=== PATIENT | male | born 1975 | race Two or more races ===

== ENCOUNTER 2020-12-20 16:41 | Inpatient (IN) | payer MEDICAID ==
[~2020-12-20] VITALS: Ht 167.6 cm; Wt 101.5 kg
[2020-12-20 18:50] LABS: Albumin 2.2 g/dL (3.4-5.0); Amylase 45 U/L (25-115); Anion Gap 8 (5-15); Basophils # (auto) 0 10 ^3/uL (0-0.2); Blood Urea Nitrogen 6 mg/dL (7-18); Calcium 7.7 mg/dL (8.5-10.1); Carbon Dioxide 27 mmol/L (21-32); Chloride 103 mmol/L (98-107); Eosinophils # (auto) 0.1 10 ^3/uL (0-0.8); Glucose 143 mg/dL (74-106); Lipase 173 U/L (73-393); Magnesium 1.9 mg/dL (1.6-2.6); Monocytes # (auto) 0.7 10 ^3/uL (0-1.3); Monocytes % (auto) 12.5 % (0.0-12.0); Potassium 3.7 mmol/L (3.5-5.1); Sodium 138 mmol/L (136-145)
[2020-12-20 18:52] LABS: Basophils % (auto) 0.5 % (0.0-2.0); Hemoglobin 11.1 g/dL (13.5-17.5); Lymphocytes # (auto) 1.5 10 ^3/uL (0.4-5.4); Lymphocytes % (auto) 26.7 % (10.0-50.0); Mean Corpuscular Hemoglobin 28.1 pg (28.0-32.0); Mean Corpuscular Hgb Conc. 32.8 g/dL (32.0-36.0); Mean Corpuscular Volume 85.7 fL (80.0-100.0); Neutrophils # (auto) 3.3 10 ^3/uL (1.6-8.6); Neutrophils % (auto) 59.3 % (37.0-80.0); Nucleated Red Blood Cells % 0.2 %; Platelet Count (auto) 43 10^3/uL (140-450); Red Blood Cells 3.96 10^6/uL (4.5-5.90); Red Cell Distribution Width 19.9 % (11.8-14.3); White Blood Cell 5.6 10^3/uL (4.4-10.8)
[2020-12-20 18:53] LABS: Lactic Acid w/Reflex 2.1 mmol/L (0.4-2.0)
[2020-12-20 18:58] LABS: Alanine Aminotransferase 43 U/L (16-61); Alkaline Phosphatase 214 U/L (45-117); Aspartate Aminotransferase 96 U/L (15-37); BUN/Creatinine Ratio 9.1; Bilirubin, Total 3.1 mg/dL (0.2-1.0); GFR African American 166 mL/min; GFR Non-African American 138 mL/min; Total Protein 7.8 g/dL (6.4-8.2)
[2020-12-20 19:26] LABS: INR 1.29 (0.9-1.15); Partial Thromboplastin Time 30.3 sec (23.0-31.2)
[2020-12-20] MEDS ORDERED: LACTULOSE 20Gm/30ML SOLN PO ONE (19:45)
[2020-12-20] MEDS ORDERED: ONDANSETRON HCL 4 MG/2 ML VIAL IV ONE (19:45)
[2020-12-20] MEDS ORDERED: LORazepam 2MG/ML-1ML VIAL IV ONE (19:45)
[2020-12-20] MEDS ORDERED: PIPERACILLIN-TAZOB 3.375GM 100 ML IV ONE (19:45)
[2020-12-21] VITALS (11 sets, daily range): BP systolic 117–153; BP diastolic 65–94
[2020-12-21] MEDS ORDERED: MORPHINE SULF INJ 2 MG/ML SYRINGE 1ML IV PRN (00:30)
[2020-12-21] MEDS ORDERED: NITROGLYCERIN 0.4 MG SL TAB SL PRN (00:30)
[2020-12-21] MEDS ORDERED: ALBUMIN 25% 50 ML IV ONE (00:30)
[2020-12-21] MEDS ORDERED: MORPHINE SULFATE 4 MG/ML SYR/VIAL IV PRN (00:30)
[2020-12-21] MEDS ORDERED: LORazepam 2MG/ML-1ML VIAL IV PRN (00:30)
[2020-12-21] MEDS ORDERED: ONDANSETRON HCL 4 MG/2 ML VIAL IV PRN (00:30)
[2020-12-21 04:50] LABS: Urine Bacteria NONE SEEN /hpf (None Seen); Urine Blood Negative /uL (Negative); Urine Specific Gravity 1.009 (1.001-1.035); Urine WBC 1 /hpf (0 - 3)
[2020-12-21] MEDS: SODIUM CHLOR 0.9% PF (SALINE LOCK) 10ML VIAL/SYR IV SCH ×3 (06:26→21:17)
[2020-12-21] MEDS: LACTULOSE 20Gm/30ML SOLN PO SCH ×4 (06:27→21:17)
[2020-12-21] MEDS: PIPERACILLIN-TAZOB 3.375GM 100 ML IV SCH ×3 (06:27→21:17)
[2020-12-21 06:45] LABS: Calcium 7.6 mg/dL (8.5-10.1); Potassium 3.5 mmol/L (3.5-5.1)
[2020-12-21 06:49] LABS: BUN/Creatinine Ratio 7.1; Bilirubin, Total 3.5 mg/dL (0.2-1.0)
[2020-12-21 07:00] LABS: Basophils # (auto) 0 10 ^3/uL (0-0.2); Basophils % (auto) 0.6 % (0.0-2.0); Eosinophils # (auto) 0 10 ^3/uL (0-0.8); Eosinophils % (auto) 0.8 % (0.0-7.0); Hematocrit 31.8 % (41.0-53.0); Hemoglobin 10.6 g/dL (13.5-17.5); Lymphocytes % (auto) 18.1 % (10.0-50.0); Mean Corpuscular Hemoglobin 28.7 pg (28.0-32.0); Mean Corpuscular Hgb Conc. 33.2 g/dL (32.0-36.0); Mean Corpuscular Volume 86.4 fL (80.0-100.0); Monocytes # (auto) 0.7 10 ^3/uL (0-1.3); Monocytes % (auto) 12.6 % (0.0-12.0); Neutrophils # (auto) 3.6 10 ^3/uL (1.6-8.6); Neutrophils % (auto) 67.9 % (37.0-80.0); Nucleated Red Blood Cells % 0.4 %; Platelet Count (auto) 55 10^3/uL (140-450); Red Blood Cells 3.68 10^6/uL (4.5-5.90); Red Cell Distribution Width 19.7 % (11.8-14.3); White Blood Cell 5.3 10^3/uL (4.4-10.8)
[2020-12-21 07:09] LABS: INR 1.31 (0.9-1.15)
[2020-12-21] MEDS ORDERED: ALBUMIN 25% 50 ML IV SCH (09:00)
[2020-12-21] MEDS: FAMOTIDINE 20 MG TAB PO SCH ×2 (09:42→21:17)
[2020-12-21] MEDS ORDERED: ZINC SULFATE 220mg CAP or TAB PO SCH (10:00)
[2020-12-21] MEDS ORDERED: INFLUENZA QUAD 2020-2021 0.5 ML SYRG IM ONE (10:00)
[2020-12-21] MEDS ORDERED: ASCORBIC ACID 500 MG TAB PO SCH (10:00)
[2020-12-21] MEDS ORDERED: MULTIPLE VITAMIN TAB PO SCH (10:00)
[2020-12-21] MEDS ORDERED: PNEUMOCOCCAL VACC POLYS 25 MCG/0.5 ML VIAL IM ONE (10:00)
[2020-12-21] MEDS: FOLIC ACID 1 MG, MULTIPLE VITAMIN 10 ML, MAGNESIUM SULF SDV 50% 8 MEQ, THIAMINE INJ 100... INJ SCH ×5 (13:00)
[2020-12-21] MEDS: FUROSEMIDE 40 MG TAB PO SCH (15:40)
[2020-12-21] MEDS: SPIRONOLACTONE 25 MG TAB PO SCH (15:41)
[2020-12-22 05:00] VITALS: BP 135/76
[2020-12-22] MEDS: LACTULOSE 20Gm/30ML SOLN PO SCH ×4 (05:29→22:53)
[2020-12-22] MEDS: PIPERACILLIN-TAZOB 3.375GM 100 ML IV SCH ×3 (05:29→21:31)
[2020-12-22] MEDS: SODIUM CHLOR 0.9% PF (SALINE LOCK) 10ML VIAL/SYR IV SCH ×3 (05:34→21:32)
[2020-12-22 05:55] LABS: Basophils # (auto) 0 10 ^3/uL (0-0.2); Eosinophils # (auto) 0.1 10 ^3/uL (0-0.8); Mean Corpuscular Hemoglobin 28.2 pg (28.0-32.0); Mean Corpuscular Hgb Conc. 32.8 g/dL (32.0-36.0); Mean Corpuscular Volume 85.9 fL (80.0-100.0); Monocytes # (auto) 0.9 10 ^3/uL (0-1.3)
[2020-12-22 06:00] LABS: Basophils % (auto) 0.5 % (0.0-2.0); Eosinophils % (auto) 1.2 % (0.0-7.0); Hematocrit 33.6 % (41.0-53.0); Lymphocytes # (auto) 1.2 10 ^3/uL (0.4-5.4); Lymphocytes % (auto) 22.8 % (10.0-50.0); Monocytes % (auto) 17.7 % (0.0-12.0); Neutrophils # (auto) 2.9 10 ^3/uL (1.6-8.6); Neutrophils % (auto) 57.8 % (37.0-80.0); Nucleated Red Blood Cells % 0.3 %; Platelet Count (auto) 51 10^3/uL (140-450); Red Blood Cells 3.91 10^6/uL (4.5-5.90); Red Cell Distribution Width 19.1 % (11.8-14.3); White Blood Cell 5.1 10^3/uL (4.4-10.8)
[2020-12-22 06:21] LABS: Potassium 3.3 mmol/L (3.5-5.1)
[2020-12-22 06:26] LABS: BUN/Creatinine Ratio 9.7; Bilirubin, Total 4.9 mg/dL (0.2-1.0); Calcium 8.1 mg/dL (8.5-10.1)
[2020-12-22 09:00] VITALS: BP 132/80
[2020-12-22] MEDS: FAMOTIDINE 20 MG TAB PO SCH ×2 (09:52→21:32)
[2020-12-22] MEDS: SPIRONOLACTONE 25 MG TAB PO SCH (09:52)
[2020-12-22] MEDS: FUROSEMIDE 40 MG TAB PO SCH (09:52)
[2020-12-22 13:00] VITALS: BP 127/70
[2020-12-22] MEDS: FOLIC ACID 1 MG, MULTIPLE VITAMIN 10 ML, MAGNESIUM SULF SDV 50% 8 MEQ, THIAMINE INJ 100... INJ SCH ×5 (13:13)
[2020-12-22 16:55] VITALS: BP 114/69
[2020-12-22 22:00] VITALS: BP 126/80
[2020-12-23] VITALS (11 sets, daily range): BP systolic 101–139; BP diastolic 62–86
[2020-12-23] MEDS: SODIUM CHLOR 0.9% PF (SALINE LOCK) 10ML VIAL/SYR IV SCH ×3 (04:44→20:53)
[2020-12-23] MEDS: PIPERACILLIN-TAZOB 3.375GM 100 ML IV SCH ×3 (04:44→20:53)
[2020-12-23] MEDS: LACTULOSE 20Gm/30ML SOLN PO SCH ×4 (04:45→23:26)
[2020-12-23 09:15] LABS: Basophils # (auto) 0 10 ^3/uL (0-0.2); Eosinophils # (auto) 0.1 10 ^3/uL (0-0.8); Lymphocytes # (auto) 1.1 10 ^3/uL (0.4-5.4); Monocytes # (auto) 0.5 10 ^3/uL (0-1.3); White Blood Cell 4.5 10^3/uL (4.4-10.8)
[2020-12-23 09:18] LABS: Basophils % (auto) 0.5 % (0.0-2.0); Eosinophils % (auto) 2.1 % (0.0-7.0); Hematocrit 35.2 % (41.0-53.0); Hemoglobin 11.8 g/dL (13.5-17.5); Lymphocytes % (auto) 24.3 % (10.0-50.0); Mean Corpuscular Hemoglobin 28.9 pg (28.0-32.0); Mean Corpuscular Hgb Conc. 33.4 g/dL (32.0-36.0); Mean Corpuscular Volume 86.5 fL (80.0-100.0); Neutrophils # (auto) 2.8 10 ^3/uL (1.6-8.6); Neutrophils % (auto) 61.1 % (37.0-80.0); Nucleated Red Blood Cells % 0.2 %; Platelet Count (auto) 48 10^3/uL (140-450); Red Blood Cells 4.07 10^6/uL (4.5-5.90); Red Cell Distribution Width 19.5 % (11.8-14.3)
[2020-12-23 10:53] LABS: INR 1.34 (0.9-1.15); Partial Thromboplastin Time 30.2 sec (23.0-31.2)
[2020-12-23] MEDS ORDERED: POTASSIUM CHL 20 Meq TABLET PO ONE (11:00)
[2020-12-23] MEDS: FUROSEMIDE 40 MG TAB PO SCH (15:12)
[2020-12-23] MEDS: FAMOTIDINE 20 MG TAB PO SCH ×2 (15:12→20:53)
[2020-12-23] MEDS: SPIRONOLACTONE 25 MG TAB PO SCH (15:12)
[2020-12-23] MEDS: FOLIC ACID 1 MG, MULTIPLE VITAMIN 10 ML, MAGNESIUM SULF SDV 50% 8 MEQ, THIAMINE INJ 100... INJ SCH ×5 (15:33)
[2020-12-23] MEDS ORDERED: ALBUMIN 25% 50 ML IV ONE (15:45)
[2020-12-23] MEDS ORDERED: ALBUMIN 25% 100 ML IV ONE (16:00)
[2020-12-24 05:00] VITALS: BP 131/77
[2020-12-24] MEDS: PIPERACILLIN-TAZOB 3.375GM 100 ML IV SCH (05:25)
[2020-12-24] MEDS: SODIUM CHLOR 0.9% PF (SALINE LOCK) 10ML VIAL/SYR IV SCH (05:25)
[2020-12-24] MEDS: LACTULOSE 20Gm/30ML SOLN PO SCH ×2 (05:25→12:00)
[2020-12-24 06:08] LABS: Basophils # (auto) 0 10 ^3/uL (0-0.2); Eosinophils # (auto) 0.1 10 ^3/uL (0-0.8); Eosinophils % (auto) 2.3 % (0.0-7.0); Hemoglobin 11.1 g/dL (13.5-17.5); Nucleated Red Blood Cells % 0.3 %
[2020-12-24 06:11] LABS: Basophils % (auto) 0.4 % (0.0-2.0); Hematocrit 34.1 % (41.0-53.0); Lymphocytes # (auto) 1.1 10 ^3/uL (0.4-5.4); Lymphocytes % (auto) 22.3 % (10.0-50.0); Mean Corpuscular Hemoglobin 28.3 pg (28.0-32.0); Mean Corpuscular Hgb Conc. 32.5 g/dL (32.0-36.0); Mean Corpuscular Volume 87.1 fL (80.0-100.0); Monocytes # (auto) 0.6 10 ^3/uL (0-1.3); Monocytes % (auto) 12.7 % (0.0-12.0); Neutrophils # (auto) 3.1 10 ^3/uL (1.6-8.6); Neutrophils % (auto) 62.3 % (37.0-80.0); Platelet Count (auto) 62 10^3/uL (140-450); Red Blood Cells 3.91 10^6/uL (4.5-5.90); Red Cell Distribution Width 18.7 % (11.8-14.3); White Blood Cell 4.9 10^3/uL (4.4-10.8)
[2020-12-24 09:00] VITALS: BP 120/74
[2020-12-24] MEDS: SPIRONOLACTONE 25 MG TAB PO SCH (09:14)
[2020-12-24] MEDS: FAMOTIDINE 20 MG TAB PO SCH (09:14)
[2020-12-24] MEDS: FUROSEMIDE 40 MG TAB PO SCH (09:14)
[2020-12-24] MEDS: FOLIC ACID 1 MG, MULTIPLE VITAMIN 10 ML, MAGNESIUM SULF SDV 50% 8 MEQ, THIAMINE INJ 100... INJ SCH ×5 (12:00)
[2020-12-24 12:31] VITALS: BP 120/74
[2020-12-24 13:00] VITALS: BP 123/73
== END 2020-12-24 13:30 | disposition home or self-care (01) | DRG 280 ==
LOC: ER 16:41 → TELE-WESTW 12-21 00:34
PROVIDERS: ADMIT Nurse Practitioner Family; ATTEND Family Medicine
PROC: 30233R1 Transfusion of Nonautologous Platelets into Peripheral Vein, Percutaneous Approach (ICD-10-PCS; 2020-12-21)
PROC: 0W9G3ZZ Drainage of Peritoneal Cavity, Percutaneous Approach (ICD-10-PCS; principal; 2020-12-23)
DX: K70.31 Alcoholic cirrhosis of liver with ascites (principal); J96.01 Acute respiratory failure with hypoxia; K72.90 Hepatic failure, unspecified without coma; F10.231 Alcohol dependence with withdrawal delirium; L03.115 Cellulitis of right lower limb; D69.6 Thrombocytopenia, unspecified; L03.116 Cellulitis of left lower limb; E44.1 Mild protein-calorie malnutrition; Z68.27 Body mass index [BMI] 27.0-27.9, adult; F41.9 Anxiety disorder, unspecified; F10.229 Alcohol dependence with intoxication, unspecified; F17.210 Nicotine dependence, cigarettes, uncomplicated; G40.909 Epilepsy, unspecified, not intractable, without status epilepticus; I10 Essential (primary) hypertension; J44.9 Chronic obstructive pulmonary disease, unspecified; Y90.8 Blood alcohol level of 240 mg/100 ml or more; Z91.14 Patient's other noncompliance with medication regimen; Z20.822 Contact with and (suspected) exposure to COVID-19; E11.9 Type 2 diabetes mellitus without complications
CPT/HCPCS: 10022; 36415; 70450; 71250; 74176; 76700; 76942; 80053; 80320; 81001; 82140; 82150; 82962; 83036; 83605; 83615; 83690; 83735; 83880; 83986; 84484; 85025; 85610; 85730; 86850; 86900; 86901; 87040; 87086; 87205; 87426; 89051; 93005; 96365; G0378; J2543

== ENCOUNTER 2021-08-31 13:04 | Emergency (ER) | payer MEDICAID ==
[~2021-08-31] VITALS: Ht 167.6 cm; Wt 86.2 kg
[2021-08-31 17:24] VITALS: BP 156/106
[2021-08-31] MEDS ORDERED: TETANUS-DIPTH-ACEL PERTUSSIS 0.5ML SYR Tdap IM ONE (18:00)
[2021-08-31] MEDS ORDERED: cefTRIAXone SOD 1,000 MG VL IM ONE (18:15)
== END 2021-08-31 18:50 | disposition home or self-care (01) ==
LOC: ER 13:04
DX: S81.031A Puncture wound without foreign body, right knee, initial encounter (principal); J44.9 Chronic obstructive pulmonary disease, unspecified; E11.9 Type 2 diabetes mellitus without complications; F17.210 Nicotine dependence, cigarettes, uncomplicated; W19.XXXA Unspecified fall, initial encounter; Y93.89 Activity, other specified; Y92.89 Other specified places as the place of occurrence of the external cause; Y99.8 Other external cause status
CPT/HCPCS: 73700; 90471; 90715; 96372; 99284; J0696

== ENCOUNTER 2022-05-25 08:30 | Emergency (ER) | payer MEDICAID ==
[~2022-05-25] VITALS: Ht 172.7 cm; Wt 74.6 kg
[~2022-05-25 08:30] MED LIST: FURO1TAB32 PO; SPIR100T4 PO
[2022-05-25] MEDS ORDERED: SODIUM CHLORIDE 0.9% 1,000 ML IV ONE (09:15)
[2022-05-25 09:33] LABS: Urine Bacteria NONE SEEN /hpf (None Seen); Urine Blood TRACE /uL (Negative); Urine Specific Gravity 1.013 (1.001-1.035); Urine WBC 2 /hpf (0 - 3)
[2022-05-25 09:33] LABS: Basophils # (auto) 0 10 ^3/uL (0-0.2); Basophils % (auto) 0.3 % (0.0-2.0); Eosinophils # (auto) 0 10 ^3/uL (0-0.8); Eosinophils % (auto) 0.6 % (0.0-7.0); Hematocrit 38.1 % (41.0-53.0); Lymphocytes # (auto) 0.5 10 ^3/uL (0.4-5.4); Monocytes # (auto) 0.6 10 ^3/uL (0-1.3); Red Cell Distribution Width 19.6 % (11.8-14.3); White Blood Cell 4.5 10^3/uL (4.4-10.8)
[2022-05-25 09:34] LABS: Hemoglobin 12.1 g/dL (13.5-17.5); Lymphocytes % (auto) 10.6 % (10.0-50.0); Mean Corpuscular Hemoglobin 27.6 pg (28.0-32.0); Mean Corpuscular Hgb Conc. 31.8 g/dL (32.0-36.0); Mean Corpuscular Volume 86.9 fL (80.0-100.0); Neutrophils # (auto) 3.4 10 ^3/uL (1.6-8.6); Neutrophils % (auto) 74.5 % (37.0-80.0); Nucleated Red Blood Cells % 0.1 %; Red Blood Cells 4.38 10^6/uL (4.5-5.90)
[2022-05-25 09:45] LABS: Alcohol, Urine < 3.0 mg/dL (0-10); Amphetamine Screen, Urine NEGATIVE (NEGATIVE); Barbiturate Scree,Urine NEGATIVE (NEGATIVE); Benzodiazephine Screen, Urine NEGATIVE (NEGATIVE); Cannabinoid Screen, Urine NEGATIVE (NEGATIVE); Cocaine Screen, Urine NEGATIVE (NEGATIVE); Opiate Scree,Urine NEGATIVE (NEGATIVE); Phencyclidine Screen, Urine NEGATIVE (NEGATIVE)
[2022-05-25 09:45] LABS: Calcium 8.7 mg/dL (8.5-10.1); Chloride 92 mmol/L (98-107); Potassium 3.4 mmol/L (3.5-5.1); Sodium 129 mmol/L (136-145)
[2022-05-25 09:52] LABS: Alanine Aminotransferase 49 U/L (16-61); Albumin 2.2 g/dL (3.4-5.0); Alkaline Phosphatase 149 U/L (45-117); Anion Gap 8 (5-15); Aspartate Aminotransferase 53 U/L (15-37); BUN/Creatinine Ratio 12.9; Bilirubin, Total 7.4 mg/dL (0.2-1.0); Blood Alcohol < 3.0 mg/dL (0-5); Blood Urea Nitrogen 13 mg/dL (7-18); Carbon Dioxide 29 mmol/L (21-32); GFR African American 101 mL/min; GFR Non-African American 83 mL/min; Glucose 325 mg/dL (74-106); Total Protein 8.3 g/dL (6.4-8.2)
[2022-05-25 12:00] VITALS: BP 105/59
[2022-05-25] MEDS ORDERED: POTASSIUM EFFERVESENT TAB 25 MEQ PO ONE (12:45)
== END 2022-05-25 12:50 | disposition home or self-care (01) ==
LOC: ER 08:30
DX: F10.10 Alcohol abuse, uncomplicated (principal); K70.30 Alcoholic cirrhosis of liver without ascites; E11.9 Type 2 diabetes mellitus without complications; J44.9 Chronic obstructive pulmonary disease, unspecified; F17.210 Nicotine dependence, cigarettes, uncomplicated; Z79.899 Other long term (current) drug therapy; Z20.822 Contact with and (suspected) exposure to COVID-19; Y90.0 Blood alcohol level of less than 20 mg/100 ml
CPT/HCPCS: 36415; 74176; 80053; 80307; 80320; 81001; 82140; 85025; 87426; 96360; 99284; J7030

== ENCOUNTER 2022-09-15 13:59 | Emergency (ER) | payer MEDICAID ==
[~2022-09-15] VITALS: Ht 172.7 cm; Wt 79.0 kg
[2022-09-15 15:03] LABS: Potassium 3.9 mmol/L (3.5-5.1)
[2022-09-15 15:09] LABS: Albumin 2.4 g/dL (3.4-5.0); Bilirubin, Total 2.1 mg/dL (0.2-1.0); Calcium 8.6 mg/dL (8.5-10.1); Total Protein 6.9 g/dL (6.4-8.2)
[2022-09-15 16:00] LABS: Basophils # (auto) 0 10 ^3/uL (0-0.2); Basophils % (auto) 0.3 % (0.0-2.0); Hematocrit 40.3 % (41.0-53.0); Monocytes # (auto) 0.5 10 ^3/uL (0-1.3); Neutrophils # (auto) 3.7 10 ^3/uL (1.6-8.6); Nucleated Red Blood Cells % 0.2 %; White Blood Cell 5.4 10^3/uL (4.4-10.8)
[2022-09-15 16:03] LABS: Eosinophils # (auto) 0.1 10 ^3/uL (0-0.8); Hemoglobin 12.8 g/dL (13.5-17.5); Lymphocytes % (auto) 18.8 % (10.0-50.0); Mean Corpuscular Hemoglobin 25.3 pg (28.0-32.0); Mean Corpuscular Hgb Conc. 31.7 g/dL (32.0-36.0); Mean Corpuscular Volume 79.7 fL (80.0-100.0); Monocytes % (auto) 10.1 % (0.0-12.0); Neutrophils % (auto) 69.8 % (37.0-80.0); Red Blood Cells 5.06 10^6/uL (4.5-5.90); Red Cell Distribution Width 17.6 % (11.8-14.3)
[2022-09-15 18:56] VITALS: BP 103/49
== END 2022-09-15 18:57 | disposition home or self-care (01) ==
LOC: ER 13:59
DX: K43.9 Ventral hernia without obstruction or gangrene (principal); K42.9 Umbilical hernia without obstruction or gangrene; E11.65 Type 2 diabetes mellitus with hyperglycemia; K70.30 Alcoholic cirrhosis of liver without ascites; F41.9 Anxiety disorder, unspecified; J44.9 Chronic obstructive pulmonary disease, unspecified; F17.210 Nicotine dependence, cigarettes, uncomplicated; R10.84 Generalized abdominal pain
CPT/HCPCS: 36415; 74176; 80053; 83690; 84484; 85025

== ENCOUNTER 2022-10-23 17:24 | Inpatient (IN) | payer MEDICAID ==
[~2022-10-23] VITALS: Ht 165.1 cm; Wt 92.7 kg
[2022-10-23] MEDS ORDERED: ONDANSETRON HCL 4 MG/2 ML VIAL IV ONE (17:45)
[2022-10-23] MEDS ORDERED: PANTOPRAZOLE 40 MG/10 ML VIAL INJ IV ONE (17:45)
[2022-10-23] MEDS ORDERED: MORPHINE SULFATE 4 MG/ML SYR/VIAL IV ONE (17:45)
[2022-10-23 18:40] LABS: Urine Bacteria NONE SEEN /hpf (None Seen); Urine Blood TRACE /uL (Negative); Urine Specific Gravity 1.023 (1.001-1.035); Urine WBC <1 /hpf (0 - 3)
[2022-10-23 18:44] LABS: Basophils # (auto) 0 10 ^3/uL (0-0.2); Basophils % (auto) 0.6 % (0.0-2.0); Eosinophils # (auto) 0 10 ^3/uL (0-0.8); Neutrophils # (auto) 2.2 10 ^3/uL (1.6-8.6); White Blood Cell 3.8 10^3/uL (4.4-10.8)
[2022-10-23 18:47] LABS: Eosinophils % (auto) 0.7 % (0.0-7.0); Hematocrit 37.2 % (41.0-53.0); Lymphocytes % (auto) 27.2 % (10.0-50.0); Mean Corpuscular Hemoglobin 26.4 pg (28.0-32.0); Mean Corpuscular Hgb Conc. 32.4 g/dL (32.0-36.0); Mean Corpuscular Volume 81.4 fL (80.0-100.0); Monocytes # (auto) 0.6 10 ^3/uL (0-1.3); Monocytes % (auto) 14.5 % (0.0-12.0); Nucleated Red Blood Cells % 0.3 %; Red Blood Cells 4.57 10^6/uL (4.5-5.90); Red Cell Distribution Width 20.5 % (11.8-14.3)
[2022-10-23 18:55] LABS: Albumin 2.6 g/dL (3.4-5.0); Calcium 8.4 mg/dL (8.5-10.1); Magnesium 1.9 mg/dL (1.6-2.6); Potassium 3.9 mmol/L (3.5-5.1)
[2022-10-23 19:00] LABS: BUN/Creatinine Ratio 8.9; Bilirubin, Total 2.8 mg/dL (0.2-1.0); Total Protein 7.6 g/dL (6.4-8.2)
[2022-10-23] MEDS ORDERED: ACETAMINOPHEN 325 MG TAB PO PRN (21:45)
[2022-10-23] MEDS ORDERED: SODIUM CHLORIDE 0.9% 1,000 ML IV SCH (21:45)
[2022-10-23] MEDS ORDERED: hydrALAZINE HCL 20 MG/ML VL IV PRN (21:45)
[2022-10-23] MEDS ORDERED: MORPHINE SULFATE INJ 2 MG/ml SYRG IV PRN ×2 (21:45→23:15)
[2022-10-23] MEDS ORDERED: cefTRIAXone 1GM/50ML D5W 50 ML IV ONE (21:45)
[2022-10-23] MEDS ORDERED: DOCUSATE SOD 100 MG CAP PO PRN (21:45)
[2022-10-23] MEDS ORDERED: HYDROcodone-ACET 5/325MG TAB PO PRN (21:45)
[2022-10-23] MEDS ORDERED: DEXTROSE (50%) 50ML SYRG IV PRN (21:45)
[2022-10-23] MEDS ORDERED: ONDANSETRON HCL 4 MG/2 ML VIAL IV PRN (21:45)
[2022-10-23] MEDS ORDERED: NITROGLYCERIN 0.4 MG SL TAB SL PRN (23:15)
[2022-10-23 23:23] LABS: Lactic Acid w/Reflex 2.5 mmol/L (0.4-2.0)
[2022-10-23] MEDS: FAMOTIDINE (10MG/ML) 2ML VL IV SCH (23:23)
[2022-10-24] MEDS: ACCU-CHEK COMFORT CURVE STRIP VI SCH ×5 (00:02→22:25)
[2022-10-24] MEDS: InsuLIN REG 1unit/0.01ml Soln (100units/ml) SC SCH ×5 (00:02→22:26)
[2022-10-24 07:03] LABS: Basophils # (auto) 0 10 ^3/uL (0-0.2); Eosinophils # (auto) 0 10 ^3/uL (0-0.8); Eosinophils % (auto) 1.1 % (0.0-7.0); Hemoglobin 11.6 g/dL (13.5-17.5); Lymphocytes # (auto) 0.8 10 ^3/uL (0.4-5.4); Monocytes # (auto) 0.5 10 ^3/uL (0-1.3); Neutrophils # (auto) 2.2 10 ^3/uL (1.6-8.6); White Blood Cell 3.5 10^3/uL (4.4-10.8)
[2022-10-24 07:05] LABS: Basophils % (auto) 0.4 % (0.0-2.0); Hematocrit 36.4 % (41.0-53.0); Lymphocytes % (auto) 22.8 % (10.0-50.0); Mean Corpuscular Hgb Conc. 31.8 g/dL (32.0-36.0); Mean Corpuscular Volume 81.9 fL (80.0-100.0); Monocytes % (auto) 13.4 % (0.0-12.0); Neutrophils % (auto) 62.3 % (37.0-80.0); Nucleated Red Blood Cells % 0.4 %; Red Blood Cells 4.45 10^6/uL (4.5-5.90)
[2022-10-24 07:07] LABS: Red Cell Distribution Width 20.5 % (11.8-14.3)
[2022-10-24 07:15] LABS: Potassium 3.7 mmol/L (3.5-5.1)
[2022-10-24 07:22] LABS: Albumin 2.3 g/dL (3.4-5.0); BUN/Creatinine Ratio 9.1; Bilirubin, Total 2.7 mg/dL (0.2-1.0); Calcium 8.2 mg/dL (8.5-10.1); Total Protein 6.8 g/dL (6.4-8.2)
[2022-10-24] MEDS ORDERED: FUROSEMIDE 40 MG/4 ML VIAL IV SCH (10:00)
[2022-10-24] MEDS: SPIRONOLACTONE 25 MG TAB PO SCH (10:00)
[2022-10-24] MEDS ORDERED: DEXTROSE (50%) 50ML SYRG IV PRN (11:00)
[2022-10-24] MEDS: FAMOTIDINE (10MG/ML) 2ML VL IV SCH ×2 (11:26→22:25)
[2022-10-24] MEDS: cefTRIAXone 1GM/50ML D5W 50 ML IV SCH (11:27)
[2022-10-24] MEDS: MULTIPLE VITAMIN TAB PO SCH (11:27)
[2022-10-24] MEDS: THIAMINE HCL 100 MG TAB PO SCH (11:27)
[2022-10-24] MEDS: FOLIC ACID 1 MG TAB PO SCH (11:28)
[2022-10-24 11:47] LABS: INR 1.13 (0.9-1.15); Partial Thromboplastin Time 25.4 sec (24.6-33.4)
[2022-10-24] MEDS: LACTULOSE 20Gm/30ML SOLN PO SCH ×2 (12:11→18:29)
[2022-10-24 13:24] VITALS: BP 134/86
[2022-10-24] MEDS ORDERED: ALBUMIN 25% 100 ML IV ONE (14:30)
[2022-10-24] MEDS ORDERED: FUROSEMIDE 20 MG/2 ML VIAL IV ONE (15:30)
[2022-10-24 17:20] VITALS: BP 146/81
[2022-10-24 22:00] VITALS: BP 129/63
[2022-10-24] MEDS: FUROSEMIDE 40 MG/4 ML VIAL IV SCH (22:25)
[2022-10-25 05:00] VITALS: BP 125/56
[2022-10-25 06:08] LABS: Basophils # (auto) 0 10 ^3/uL (0-0.2); Basophils % (auto) 0.4 % (0.0-2.0); Eosinophils # (auto) 0.1 10 ^3/uL (0-0.8); Eosinophils % (auto) 1.7 % (0.0-7.0); Monocytes # (auto) 0.6 10 ^3/uL (0-1.3)
[2022-10-25 06:11] LABS: Hematocrit 35.9 % (41.0-53.0); Hemoglobin 11.5 g/dL (13.5-17.5); Lymphocytes % (auto) 26.7 % (10.0-50.0); Mean Corpuscular Hemoglobin 26.2 pg (28.0-32.0); Neutrophils % (auto) 55.2 % (37.0-80.0); Nucleated Red Blood Cells % 0.4 %; Red Blood Cells 4.38 10^6/uL (4.5-5.90); White Blood Cell 3.7 10^3/uL (4.4-10.8)
[2022-10-25] MEDS: ACCU-CHEK COMFORT CURVE STRIP VI SCH ×4 (06:24→22:08)
[2022-10-25] MEDS: LACTULOSE 20Gm/30ML SOLN PO SCH ×4 (06:24→17:32)
[2022-10-25] MEDS: InsuLIN REG 1unit/0.01ml Soln (100units/ml) SC SCH ×4 (06:25→22:09)
[2022-10-25 06:49] LABS: Red Cell Distribution Width 20.4 % (11.8-14.3)
[2022-10-25 06:53] LABS: Potassium 3.3 mmol/L (3.5-5.1)
[2022-10-25 07:01] LABS: Albumin 2.3 g/dL (3.4-5.0); Bilirubin, Total 3.6 mg/dL (0.2-1.0); Calcium 8.4 mg/dL (8.5-10.1); Total Protein 6.4 g/dL (6.4-8.2)
[2022-10-25] MEDS ORDERED: POTASSIUM CHL 20 Meq TABLET PO ONE ×2 (07:45→16:00)
[2022-10-25 08:00] VITALS: BP 129/72
[2022-10-25 09:00] VITALS: BP 129/72
[2022-10-25] MEDS: FAMOTIDINE (10MG/ML) 2ML VL IV SCH ×2 (10:30→22:08)
[2022-10-25] MEDS: FUROSEMIDE 40 MG/4 ML VIAL IV SCH ×2 (10:30→22:08)
[2022-10-25] MEDS: FOLIC ACID 1 MG TAB PO SCH (10:30)
[2022-10-25] MEDS: cefTRIAXone 1GM/50ML D5W 50 ML IV SCH (10:30)
[2022-10-25] MEDS: THIAMINE HCL 100 MG TAB PO SCH (10:31)
[2022-10-25] MEDS: MULTIPLE VITAMIN TAB PO SCH (10:31)
[2022-10-25] MEDS: SPIRONOLACTONE 25 MG TAB PO SCH (10:31)
[2022-10-25 13:00] VITALS: BP 137/84
[2022-10-25] MEDS ORDERED: INSULIN LANTUS (GLARGINE) 1 /0.01ml (100units/ml) SC ONE (13:00)
[2022-10-25 17:00] VITALS: BP 120/77
[2022-10-25 22:00] VITALS: BP 135/85
[2022-10-26 05:00] VITALS: BP 125/76
[2022-10-26] MEDS: LACTULOSE 20Gm/30ML SOLN PO SCH ×4 (06:00→18:00)
[2022-10-26 06:15] LABS: Basophils # (auto) 0 10 ^3/uL (0-0.2); Eosinophils # (auto) 0.1 10 ^3/uL (0-0.8); Hemoglobin 12.5 g/dL (13.5-17.5); Monocytes # (auto) 0.5 10 ^3/uL (0-1.3); Red Blood Cells 4.78 10^6/uL (4.5-5.90); White Blood Cell 3.6 10^3/uL (4.4-10.8)
[2022-10-26 06:19] LABS: Basophils % (auto) 0.5 % (0.0-2.0); Eosinophils % (auto) 1.7 % (0.0-7.0); Hematocrit 39.8 % (41.0-53.0); Lymphocytes % (auto) 28.4 % (10.0-50.0); Mean Corpuscular Hemoglobin 26.1 pg (28.0-32.0); Mean Corpuscular Hgb Conc. 31.4 g/dL (32.0-36.0); Mean Corpuscular Volume 83.3 fL (80.0-100.0); Monocytes % (auto) 13.5 % (0.0-12.0); Neutrophils % (auto) 55.9 % (37.0-80.0); Nucleated Red Blood Cells % 0.7 %
[2022-10-26 06:20] LABS: Red Cell Distribution Width 20.5 % (11.8-14.3)
[2022-10-26] MEDS: ACCU-CHEK COMFORT CURVE STRIP VI SCH ×4 (06:24→21:57)
[2022-10-26] MEDS: INSULIN LANTUS (GLARGINE) 1 /0.01ml (100units/ml) SC SCH (06:24)
[2022-10-26] MEDS: InsuLIN REG 1unit/0.01ml Soln (100units/ml) SC SCH ×4 (06:25→21:49)
[2022-10-26 06:42] LABS: Albumin 2.2 g/dL (3.4-5.0); BUN/Creatinine Ratio 13.3; Calcium 8.5 mg/dL (8.5-10.1); Potassium 3.5 mmol/L (3.5-5.1)
[2022-10-26 06:50] LABS: Bilirubin, Total 3.3 mg/dL (0.2-1.0); Total Protein 6.9 g/dL (6.4-8.2)
[2022-10-26 08:00] VITALS: BP 125/76
[2022-10-26] MEDS: cefTRIAXone 1GM/50ML D5W 50 ML IV SCH (08:49)
[2022-10-26 09:00] VITALS: BP 126/86
[2022-10-26] MEDS ORDERED: LANC-347 XX (10:27)
[2022-10-26] MEDS ORDERED: POTA-180 PO (10:27)
[2022-10-26] MEDS ORDERED: FURO1TAB31 PO (10:27)
[2022-10-26] MEDS ORDERED: INSU1INJ27 SC (10:27)
[2022-10-26] MEDS ORDERED: BLOO1KIT60 XX (10:27)
[2022-10-26] MEDS ORDERED: LACT10PA2 PO (10:29)
[2022-10-26] MEDS ORDERED: POTASSIUM CHL 20 Meq TABLET PO ONE (10:30)
[2022-10-26] MEDS ORDERED: ALBUMIN 25% 100 ML IV ONE (10:30)
[2022-10-26] MEDS: FOLIC ACID 1 MG TAB PO SCH (11:46)
[2022-10-26] MEDS: MULTIPLE VITAMIN TAB PO SCH (11:47)
[2022-10-26] MEDS: SPIRONOLACTONE 25 MG TAB PO SCH (11:48)
[2022-10-26] MEDS: FAMOTIDINE (10MG/ML) 2ML VL IV SCH ×2 (11:49→21:54)
[2022-10-26] MEDS: FUROSEMIDE 40 MG/4 ML VIAL IV SCH ×2 (11:49→21:52)
[2022-10-26 11:51] LABS: Hepatitis B Surface Antibody Negative (Negative)
[2022-10-26] MEDS: THIAMINE HCL 100 MG TAB PO SCH (12:05)
[2022-10-26 12:18] LABS: Hepatitis A Total Antibody Positive (Negative)
[2022-10-26 13:00] VITALS: BP 121/76
[2022-10-26 14:55] LABS: Hepatitis A Ab IgM Negative; Hepatitis B Core IgM Negative; Hepatitis C Antibody Negative (Negative)
[2022-10-26] MEDS ORDERED: ALBUMIN 25% 50 ML IV ONE (15:30)
[2022-10-26 16:29] VITALS: BP 129/79
[2022-10-26 16:56] VITALS: BP 126/70
[2022-10-27] MEDS: LACTULOSE 20Gm/30ML SOLN PO SCH ×3 (00:25→12:00)
[2022-10-27 05:48] VITALS: BP 129/76
[2022-10-27] MEDS: ACCU-CHEK COMFORT CURVE STRIP VI SCH ×2 (06:45→11:30)
[2022-10-27] MEDS: INSULIN LANTUS (GLARGINE) 1 /0.01ml (100units/ml) SC SCH (06:48)
[2022-10-27] MEDS: InsuLIN REG 1unit/0.01ml Soln (100units/ml) SC SCH ×2 (06:49→11:30)
[2022-10-27 08:00] VITALS: BP 106/57
[2022-10-27 08:59] VITALS: BP 106/57
[2022-10-27] MEDS: cefTRIAXone 1GM/50ML D5W 50 ML IV SCH (09:00)
[2022-10-27] MEDS: FOLIC ACID 1 MG TAB PO SCH (10:00)
[2022-10-27] MEDS: FUROSEMIDE 40 MG/4 ML VIAL IV SCH (10:00)
[2022-10-27] MEDS: FAMOTIDINE (10MG/ML) 2ML VL IV SCH (10:00)
[2022-10-27] MEDS: MULTIPLE VITAMIN TAB PO SCH (10:00)
[2022-10-27] MEDS: THIAMINE HCL 100 MG TAB PO SCH (10:00)
[2022-10-27] MEDS: SPIRONOLACTONE 25 MG TAB PO SCH (10:00)
== END 2022-10-27 14:55 | disposition home or self-care (01) | DRG 280 ==
LOC: ER 17:27 → OVERFLOW 23:08 → EAST 10-24 12:58 → WEST WING 10-24 17:11
PROVIDERS: ADMIT Nurse Practitioner Family; ATTEND Internal Medicine
PROC: 0W9G30Z Drainage of Peritoneal Cavity with Drainage Device, Percutaneous Approach (ICD-10-PCS; principal; 2022-10-26)
DX: K70.31 Alcoholic cirrhosis of liver with ascites (principal); E43 Unspecified severe protein-calorie malnutrition; D69.6 Thrombocytopenia, unspecified; D64.9 Anemia, unspecified; K76.82 Hepatic encephalopathy; R16.2 Hepatomegaly with splenomegaly, not elsewhere classified; E11.65 Type 2 diabetes mellitus with hyperglycemia; E87.70 Fluid overload, unspecified; F10.120 Alcohol abuse with intoxication, uncomplicated; Z68.34 Body mass index [BMI] 34.0-34.9, adult; Z20.822 Contact with and (suspected) exposure to COVID-19; F41.9 Anxiety disorder, unspecified; R79.89 Other specified abnormal findings of blood chemistry
CPT/HCPCS: 36415; 74176; 76705; 76942; 80053; 80074; 80320; 81001; 82105; 82140; 82962; 83036; 83605; 83690; 83735; 83986; 84443; 85025; 85610; 85730; 86703; 86704; 86706; 86708; 86803; 87205; 87340; 87426; 89051; 96365; 96366; 96372; 96375; C9113; G0378; J0696; J1815; J2405; J3490; P9047

== ENCOUNTER 2022-11-11 12:36 | Emergency (ER) | payer MEDICAID ==
[~2022-11-11] VITALS: Ht 167.6 cm; Wt 79.8 kg
[~2022-11-11 12:36] MED LIST changes: +BLOO1KIT60 XX; +FURO1TAB31 PO; -FURO1TAB32 PO; +INSU1INJ27 SC; +LACT10PA2 PO; +LANC-347 XX; +POTA-180 PO; -SPIR100T4 PO
[2022-11-11 12:53] VITALS: BP 118/64
[2022-11-11] MEDS ORDERED: SODIUM CHLORIDE 0.9% 1,000 ML IV ONE (13:15)
[2022-11-11 13:34] LABS: Urine Bacteria NONE SEEN /hpf (None Seen); Urine Blood TRACE /uL (Negative); Urine Specific Gravity 1.008 (1.001-1.035); Urine WBC <1 /hpf (0 - 3)
[2022-11-11 13:36] LABS: Basophils # (auto) 0 10 ^3/uL (0-0.2); Eosinophils # (auto) 0 10 ^3/uL (0-0.8); Eosinophils % (auto) 1.1 % (0.0-7.0); Monocytes # (auto) 0.5 10 ^3/uL (0-1.3)
[2022-11-11 13:38] LABS: Hematocrit 38.8 % (41.0-53.0); Hemoglobin 12.8 g/dL (13.5-17.5); Mean Corpuscular Hemoglobin 27.1 pg (28.0-32.0); Mean Corpuscular Volume 82.3 fL (80.0-100.0); Monocytes % (auto) 14.8 % (0.0-12.0); Neutrophils # (auto) 2.1 10 ^3/uL (1.6-8.6); Neutrophils % (auto) 57.1 % (37.0-80.0); Nucleated Red Blood Cells % 0.2 %; Red Blood Cells 4.71 10^6/uL (4.5-5.90); Red Cell Distribution Width 19.3 % (11.8-14.3); White Blood Cell 3.7 10^3/uL (4.4-10.8)
[2022-11-11 13:39] LABS: BUN/Creatinine Ratio 15.6; Calcium 8.7 mg/dL (8.5-10.1); Potassium 3.8 mmol/L (3.5-5.1)
[2022-11-11] MEDS ORDERED: InsuLIN REG 1unit/0.01ml Soln (100units/ml) IV ONE (14:00)
== END 2022-11-11 15:40 | disposition home or self-care (01) ==
LOC: ER 12:36
DX: E11.65 Type 2 diabetes mellitus with hyperglycemia (principal); F41.9 Anxiety disorder, unspecified; J44.9 Chronic obstructive pulmonary disease, unspecified; Z76.0 Encounter for issue of repeat prescription; Z79.899 Other long term (current) drug therapy; Z79.84 Long term (current) use of oral hypoglycemic drugs
CPT/HCPCS: 36415; 80048; 81001; 82962; 85025; 99283; J1815; J7030

== ENCOUNTER 2023-01-03 19:27 | Inpatient (IN) | payer MEDICAID ==
[~2023-01-03] VITALS: Ht 167.6 cm; Wt 82.4 kg
[2023-01-03 21:03] LABS: Urine Bacteria NONE SEEN /hpf (None Seen); Urine Blood TRACE /uL (Negative); Urine Specific Gravity 1.027 (1.001-1.035); Urine WBC <1 /hpf (0 - 3)
[2023-01-03 21:23] LABS: Basophils # (auto) 0 10 ^3/uL (0-0.2); Basophils % (auto) 0.4 % (0.0-2.0); Eosinophils # (auto) 0 10 ^3/uL (0-0.8); Hemoglobin 11.9 g/dL (13.5-17.5); Mean Corpuscular Volume 86.2 fL (80.0-100.0); Monocytes # (auto) 0.3 10 ^3/uL (0-1.3); Nucleated Red Blood Cells % 0.2 %
[2023-01-03 21:24] LABS: Eosinophils % (auto) 0.8 % (0.0-7.0); Hematocrit 36.8 % (41.0-53.0); Lymphocytes # (auto) 0.9 10 ^3/uL (0.4-5.4); Lymphocytes % (auto) 24.4 % (10.0-50.0); Mean Corpuscular Hemoglobin 27.9 pg (28.0-32.0); Mean Corpuscular Hgb Conc. 32.4 g/dL (32.0-36.0); Neutrophils # (auto) 2.3 10 ^3/uL (1.6-8.6); Neutrophils % (auto) 65.4 % (37.0-80.0); Red Blood Cells 4.26 10^6/uL (4.5-5.90); White Blood Cell 3.6 10^3/uL (4.4-10.8)
[2023-01-03 21:34] LABS: Albumin 2.4 g/dL (3.4-5.0); Calcium 8.9 mg/dL (8.5-10.1); Potassium 3.8 mmol/L (3.5-5.1)
[2023-01-03 21:37] LABS: Bilirubin, Total 3.7 mg/dL (0.2-1.0); Total Protein 7.4 g/dL (6.4-8.2)
[2023-01-03] MEDS ORDERED: InsuLIN REG 1unit/0.01ml Soln (100units/ml) IV ONE (22:45)
[2023-01-03] MEDS ORDERED: SODIUM CHLORIDE 0.9% 250 ML IV ONE (22:45)
[2023-01-03 22:48] LABS: BUN/Creatinine Ratio 5.4 (10.0-20.0)
[2023-01-04] MEDS ORDERED: cefTRIAXone 1GM/50ML D5W 50 ML IV ONE (02:15)
[2023-01-04] MEDS ORDERED: ONDANSETRON HCL 4 MG/2 ML VIAL IV PRN (03:45)
[2023-01-04] MEDS ORDERED: DEXTROSE (50%) 50ML SYRG IV PRN (03:45)
[2023-01-04] MEDS ORDERED: TEMAZEPAM 15 MG CAP PO PRN (03:45)
[2023-01-04 04:32] LABS: INR 1.14 (0.9-1.15); Partial Thromboplastin Time 26.5 sec (24.6-33.4)
[2023-01-04] MEDS: ACCU-CHEK COMFORT CURVE STRIP VI SCH ×6 (04:52→20:00)
[2023-01-04] MEDS: InsuLIN REG 1unit/0.01ml Soln (100units/ml) SC SCH ×6 (04:58→20:00)
[2023-01-04] MEDS: FUROSEMIDE 20 MG/2 ML VIAL IV SCH ×2 (06:20→18:33)
[2023-01-04] MEDS: SPIRONOLACTONE 25 MG TAB PO SCH (11:42)
[2023-01-04] MEDS: PANTOPRAZOLE 40 MG TAB PO SCH (11:42)
[2023-01-04] MEDS: LACTULOSE 20Gm/30ML SOLN PO SCH ×2 (11:42→22:56)
[2023-01-04 23:08] VITALS: BP 143/84
[2023-01-05] VITALS (7 sets, daily range): BP systolic 121–143; BP diastolic 60–84
[2023-01-05] MEDS: ACCU-CHEK COMFORT CURVE STRIP VI SCH ×6 (00:04→20:52)
[2023-01-05] MEDS: InsuLIN REG 1unit/0.01ml Soln (100units/ml) SC SCH ×6 (00:07→20:54)
[2023-01-05 06:17] LABS: Basophils # (auto) 0 10 ^3/uL (0-0.2); Basophils % (auto) 0.6 % (0.0-2.0); Eosinophils # (auto) 0.1 10 ^3/uL (0-0.8); Hemoglobin 12.1 g/dL (13.5-17.5); Lymphocytes # (auto) 0.9 10 ^3/uL (0.4-5.4); Nucleated Red Blood Cells % 0.1 %
[2023-01-05 06:20] LABS: Eosinophils % (auto) 1.7 % (0.0-7.0); Hematocrit 37.1 % (41.0-53.0); Lymphocytes % (auto) 21.9 % (10.0-50.0); Mean Corpuscular Hemoglobin 27.8 pg (28.0-32.0); Mean Corpuscular Hgb Conc. 32.5 g/dL (32.0-36.0); Mean Corpuscular Volume 85.3 fL (80.0-100.0); Monocytes # (auto) 0.5 10 ^3/uL (0-1.3); Monocytes % (auto) 11.5 % (0.0-12.0); Neutrophils # (auto) 2.5 10 ^3/uL (1.6-8.6); Neutrophils % (auto) 64.3 % (37.0-80.0); Red Blood Cells 4.34 10^6/uL (4.5-5.90); Red Cell Distribution Width 19.9 % (11.8-14.3); White Blood Cell 3.9 10^3/uL (4.4-10.8)
[2023-01-05] MEDS: FUROSEMIDE 20 MG/2 ML VIAL IV SCH ×2 (06:21→17:30)
[2023-01-05 06:29] LABS: Albumin 2.2 g/dL (3.4-5.0); Calcium 8.2 mg/dL (8.5-10.1); Potassium 3.2 mmol/L (3.5-5.1)
[2023-01-05 06:33] LABS: BUN/Creatinine Ratio 13.2 (10.0-20.0); Bilirubin, Total 5.1 mg/dL (0.2-1.0); Total Protein 6.4 g/dL (6.4-8.2)
[2023-01-05] MEDS: SPIRONOLACTONE 25 MG TAB PO SCH (09:32)
[2023-01-05] MEDS: LACTULOSE 20Gm/30ML SOLN PO SCH ×2 (09:32→20:53)
[2023-01-05] MEDS: PANTOPRAZOLE 40 MG TAB PO SCH (09:32)
[2023-01-06] MEDS: ACCU-CHEK COMFORT CURVE STRIP VI SCH ×4 (00:35→11:52)
[2023-01-06] MEDS: InsuLIN REG 1unit/0.01ml Soln (100units/ml) SC SCH ×4 (00:49→11:53)
[2023-01-06 05:00] VITALS: BP 123/80
[2023-01-06] MEDS: FUROSEMIDE 20 MG/2 ML VIAL IV SCH (05:30)
[2023-01-06 08:00] VITALS: BP 129/81
[2023-01-06 09:00] VITALS: BP 129/81
[2023-01-06] MEDS: PANTOPRAZOLE 40 MG TAB PO SCH (09:12)
[2023-01-06] MEDS: SPIRONOLACTONE 25 MG TAB PO SCH (09:12)
[2023-01-06] MEDS: LACTULOSE 20Gm/30ML SOLN PO SCH (09:12)
[2023-01-06] MEDS ORDERED: LACT10PA2 PO (11:04)
[2023-01-06] MEDS ORDERED: FURO1TAB31 PO (11:04)
[2023-01-06] MEDS ORDERED: POTASSIUM CHL 20 Meq TABLET PO ONE (11:15)
[2023-01-06 12:46] VITALS: BP 120/74
[2023-01-06 13:00] VITALS: BP_SYST 118; BP_SYST 120; BP_DIAS 74
== END 2023-01-06 14:00 | disposition home or self-care (01) | DRG 280 ==
LOC: ER 19:27 → OVERFLOW 01-04 03:41 → CENTRAL 01-04 22:04
PROVIDERS: ADMIT Nurse Practitioner; ATTEND Internal Medicine
DX: K70.31 Alcoholic cirrhosis of liver with ascites (principal); D61.818 Other pancytopenia; E11.65 Type 2 diabetes mellitus with hyperglycemia; J44.9 Chronic obstructive pulmonary disease, unspecified; K42.9 Umbilical hernia without obstruction or gangrene; K44.9 Diaphragmatic hernia without obstruction or gangrene; K57.30 Diverticulosis of large intestine without perforation or abscess without bleeding; F41.9 Anxiety disorder, unspecified; E87.1 Hypo-osmolality and hyponatremia
CPT/HCPCS: 36415; 74176; 80053; 81001; 82140; 82962; 83690; 85025; 85610; 85730; G0378; J0696; J1815

== ENCOUNTER 2023-04-01 17:21 | Inpatient (IN) | payer MEDICAID ==
[~2023-04-01] VITALS: Ht 167.6 cm; Wt 77.0 kg
[2023-04-01 18:23] LABS: Basophils # (auto) 0 10 ^3/uL (0-0.2); Basophils % (auto) 0.3 % (0.0-2.0); Eosinophils # (auto) 0 10 ^3/uL (0-0.8); Eosinophils % (auto) 0.7 % (0.0-7.0); Hematocrit 40.7 % (41.0-53.0); Hemoglobin 12.7 g/dL (13.5-17.5); Lymphocytes # (auto) 0.7 10 ^3/uL (0.4-5.4); Lymphocytes % (auto) 17.4 % (10.0-50.0); Mean Corpuscular Hemoglobin 26.5 pg (28.0-32.0); Mean Corpuscular Hgb Conc. 31.3 g/dL (32.0-36.0); Mean Corpuscular Volume 84.8 fL (80.0-100.0); Monocytes # (auto) 0.5 10 ^3/uL (0-1.3); Neutrophils # (auto) 2.7 10 ^3/uL (1.6-8.6); Neutrophils % (auto) 68.6 % (37.0-80.0); Nucleated Red Blood Cells % 0.3 %; Red Blood Cells 4.79 10^6/uL (4.5-5.90); Red Cell Distribution Width 22.1 % (11.8-14.3); White Blood Cell 3.9 10^3/uL (4.4-10.8)
[2023-04-01 19:10] LABS: Albumin 2.4 g/dL (3.4-5.0); Calcium 8.6 mg/dL (8.5-10.1); Potassium 3.8 mmol/L (3.5-5.1)
[2023-04-01 19:14] LABS: BUN/Creatinine Ratio 11.3 (10.0-20.0); Bilirubin, Total 6.8 mg/dL (0.2-1.0); Total Protein 7.2 g/dL (6.4-8.2)
[2023-04-01] MEDS ORDERED: SODIUM CHLORIDE 0.9% 1,000 ML IV ONE (21:00)
[2023-04-01] MEDS ORDERED: ONDANSETRON HCL 4 MG/2 ML VIAL IV ONE (21:00)
[2023-04-01] MEDS ORDERED: ACETAMINOPHEN 325 MG TAB PO ONE (21:00)
[2023-04-01 22:00] LABS: Blood Alcohol < 3.0 mg/dL (<10); Magnesium 2.2 mg/dL (1.6-2.6)
[2023-04-01 22:49] LABS: INR 1.44 (0.9-1.15); Partial Thromboplastin Time 27.6 SEC (24.5-34.5)
[2023-04-02] MEDS ORDERED: DOCUSATE SOD 100 MG CAP PO PRN (00:45)
[2023-04-02] MEDS ORDERED: ONDANSETRON HCL 4 MG/2 ML VIAL IV PRN (00:45)
[2023-04-02] MEDS ORDERED: ALBUMIN 25% 100 ML IV ONE (00:45)
[2023-04-02] MEDS ORDERED: IBUPROFEN 600 MG TAB PO PRN (00:45)
[2023-04-02] MEDS ORDERED: MECLIZINE HCL 25 MG TAB PO PRN (00:45)
[2023-04-02] MEDS ORDERED: HYDROcodone-ACET 5/325MG TAB PO PRN (00:45)
[2023-04-02] MEDS ORDERED: DEXTROSE (50%) 50ML SYRG IV PRN (01:15)
[2023-04-02] MEDS ORDERED: NITROGLYCERIN 0.4 MG SL TAB SL PRN (01:15)
[2023-04-02] MEDS ORDERED: MORPHINE SULFATE INJ 2 MG/ml SYRG IV PRN (01:15)
[2023-04-02 02:40] VITALS: PULSE 64; RESP 18; O2SAT 100
[2023-04-02] MEDS: LORazepam 2MG/ML-1ML VIAL IV ONE ×2 (03:09→03:37)
[2023-04-02] MEDS: ACCU-CHEK COMFORT CURVE STRIP VI SCH ×6 (04:15→23:12)
[2023-04-02] MEDS: InsuLIN REG 1unit/0.01ml Soln (100units/ml) SC SCH ×6 (04:19→23:14)
[2023-04-02 06:01] LABS: Basophils # (auto) 0 10 ^3/uL (0-0.2); Eosinophils # (auto) 0 10 ^3/uL (0-0.8); Hemoglobin 12.2 g/dL (13.5-17.5); Lymphocytes # (auto) 0.7 10 ^3/uL (0.4-5.4); Mean Corpuscular Hemoglobin 26.7 pg (28.0-32.0); Monocytes # (auto) 0.4 10 ^3/uL (0-1.3); Nucleated Red Blood Cells % 0.3 %; White Blood Cell 3.1 10^3/uL (4.4-10.8)
[2023-04-02 06:04] LABS: Basophils % (auto) 0.5 % (0.0-2.0); Hematocrit 38.6 % (41.0-53.0); Lymphocytes % (auto) 22.3 % (10.0-50.0); Mean Corpuscular Hgb Conc. 31.7 g/dL (32.0-36.0); Mean Corpuscular Volume 84.4 fL (80.0-100.0); Monocytes % (auto) 12.3 % (0.0-12.0); Neutrophils % (auto) 63.9 % (37.0-80.0); Red Blood Cells 4.57 10^6/uL (4.5-5.90)
[2023-04-02 06:06] LABS: Albumin 2.7 g/dL (3.4-5.0); Calcium 8.4 mg/dL (8.5-10.1); Potassium 3.6 mmol/L (3.5-5.1)
[2023-04-02 06:11] LABS: BUN/Creatinine Ratio 14.5 (10.0-20.0); Total Protein 7.3 g/dL (6.4-8.2)
[2023-04-02] MEDS: SODIUM CHLOR 0.9% PF (SALINE LOCK) 10ML VIAL/SYR IV SCH ×3 (06:11→22:00)
[2023-04-02 06:29] LABS: Red Cell Distribution Width 21.9 % (11.8-14.3)
[2023-04-02] MEDS: LACTULOSE 20Gm/30ML SOLN PO SCH (09:33)
[2023-04-02] MEDS: FAMOTIDINE (10MG/ML) 2ML VL IV SCH ×2 (09:34→23:02)
[2023-04-02 16:30] VITALS: PULSE 63; RESP 16; O2SAT 96
[2023-04-02 20:25] LABS: Basophils # (auto) 0 10 ^3/uL (0-0.2); Eosinophils # (auto) 0 10 ^3/uL (0-0.8); Lymphocytes # (auto) 0.9 10 ^3/uL (0.4-5.4); Monocytes # (auto) 0.5 10 ^3/uL (0-1.3); Red Blood Cells 4.56 10^6/uL (4.5-5.90); White Blood Cell 3.5 10^3/uL (4.4-10.8)
[2023-04-02 20:27] LABS: Basophils % (auto) 0.2 % (0.0-2.0); Eosinophils % (auto) 1.3 % (0.0-7.0); Lymphocytes % (auto) 25.2 % (10.0-50.0); Mean Corpuscular Hemoglobin 26.3 pg (28.0-32.0); Mean Corpuscular Hgb Conc. 31.6 g/dL (32.0-36.0); Mean Corpuscular Volume 83.2 fL (80.0-100.0); Monocytes % (auto) 14.6 % (0.0-12.0); Neutrophils # (auto) 2.1 10 ^3/uL (1.6-8.6); Neutrophils % (auto) 58.7 % (37.0-80.0); Nucleated Red Blood Cells % 0.1 %
[2023-04-02 20:56] LABS: BUN/Creatinine Ratio 17.2 (10.0-20.0); Calcium 8.3 mg/dL (8.5-10.1); Potassium 3.9 mmol/L (3.5-5.1)
[2023-04-02 21:00] VITALS: PULSE 77; RESP 16; O2SAT 98
[2023-04-02 22:51] VITALS: BP 147/85; PULSE 69; RESP 17; RESP 18; TEMP 98.7; O2SAT 98
[2023-04-02 22:59] LABS: Urine Bacteria FEW /hpf (None Seen); Urine Blood TRACE /uL (Negative); Urine Mucus FEW (None Seen); Urine Specific Gravity 1.014 (1.001-1.035); Urine WBC 1 /hpf (0 - 3)
[2023-04-02 23:13] LABS: Alcohol, Urine < 3.0 mg/dL (0-10); Amphetamine Screen, Urine NEGATIVE (NEGATIVE); Barbiturate Scree,Urine NEGATIVE (NEGATIVE); Benzodiazephine Screen, Urine NEGATIVE (NEGATIVE); Cannabinoid Screen, Urine NEGATIVE (NEGATIVE); Cocaine Screen, Urine NEGATIVE (NEGATIVE); Opiate Scree,Urine NEGATIVE (NEGATIVE); Phencyclidine Screen, Urine NEGATIVE (NEGATIVE)
[2023-04-03] VITALS (7 sets, daily range): BP systolic 105–125; BP diastolic 62–76; PULSE 57–67; RESP 17–18; TEMP 36.8; O2SAT 98–99
[2023-04-03] MEDS: ACCU-CHEK COMFORT CURVE STRIP VI SCH ×5 (04:25→21:56)
[2023-04-03] MEDS: InsuLIN REG 1unit/0.01ml Soln (100units/ml) SC SCH ×5 (04:26→21:58)
[2023-04-03] MEDS: SODIUM CHLOR 0.9% PF (SALINE LOCK) 10ML VIAL/SYR IV SCH ×3 (06:00→22:04)
[2023-04-03 06:28] LABS: Basophils # (auto) 0 10 ^3/uL (0-0.2); Eosinophils # (auto) 0.1 10 ^3/uL (0-0.8); Hemoglobin 12.1 g/dL (13.5-17.5); Lymphocytes # (auto) 0.9 10 ^3/uL (0.4-5.4); Mean Corpuscular Hgb Conc. 31.8 g/dL (32.0-36.0); Mean Corpuscular Volume 84.1 fL (80.0-100.0); Monocytes # (auto) 0.5 10 ^3/uL (0-1.3); Neutrophils # (auto) 1.8 10 ^3/uL (1.6-8.6); White Blood Cell 3.3 10^3/uL (4.4-10.8)
[2023-04-03 06:29] LABS: Basophils % (auto) 0.6 % (0.0-2.0); Eosinophils % (auto) 2.1 % (0.0-7.0); Hematocrit 38.1 % (41.0-53.0); Lymphocytes % (auto) 28.5 % (10.0-50.0); Mean Corpuscular Hemoglobin 26.8 pg (28.0-32.0); Monocytes % (auto) 15.8 % (0.0-12.0); Nucleated Red Blood Cells % 0.1 %; Red Blood Cells 4.53 10^6/uL (4.5-5.90); Red Cell Distribution Width 22.2 % (11.8-14.3)
[2023-04-03 06:57] LABS: Albumin 2.3 g/dL (3.4-5.0); Calcium 8.5 mg/dL (8.5-10.1); Potassium 3.9 mmol/L (3.5-5.1)
[2023-04-03 06:59] LABS: BUN/Creatinine Ratio 15.2 (10.0-20.0)
[2023-04-03 07:15] LABS: Bilirubin, Total 5.8 mg/dL (0.2-1.0); Total Protein 6.6 g/dL (6.4-8.2)
[2023-04-03] MEDS: FAMOTIDINE (10MG/ML) 2ML VL IV SCH ×2 (09:34→22:03)
[2023-04-03] MEDS: LACTULOSE 20Gm/30ML SOLN PO SCH (09:34)
[2023-04-04] MEDS: ACCU-CHEK COMFORT CURVE STRIP VI SCH ×4 (01:32→12:00)
[2023-04-04] MEDS: InsuLIN REG 1unit/0.01ml Soln (100units/ml) SC SCH ×4 (01:33→12:00)
[2023-04-04 05:00] VITALS: BP 100/64; PULSE 64; RESP 16; TEMP 98; O2SAT 94
[2023-04-04 06:43] LABS: Potassium 3.7 mmol/L (3.5-5.1)
[2023-04-04 06:54] LABS: Albumin 2.3 g/dL (3.4-5.0); BUN/Creatinine Ratio 15.3 (10.0-20.0); Bilirubin, Total 4.2 mg/dL (0.2-1.0); Calcium 8.7 mg/dL (8.5-10.1); Total Protein 6.8 g/dL (6.4-8.2)
[2023-04-04] MEDS: SODIUM CHLOR 0.9% PF (SALINE LOCK) 10ML VIAL/SYR IV SCH (07:30)
[2023-04-04 09:00] VITALS: BP 113/64; PULSE 53; RESP 17; TEMP 98.1; O2SAT 97
[2023-04-04] MEDS: LACTULOSE 20Gm/30ML SOLN PO SCH (09:52)
[2023-04-04] MEDS: FAMOTIDINE (10MG/ML) 2ML VL IV SCH (09:52)
[2023-04-04] MEDS ORDERED: INSU1INJ27 SC (11:06)
[2023-04-04 11:42] VITALS: BP 113/64; PULSE 53; RESP 17; TEMP 98.1; O2SAT 98
== END 2023-04-04 13:00 | disposition home or self-care (01) | DRG 280 ==
LOC: ER 17:21 → OVERFLOW 04-02 01:11 → EAST 04-02 21:06
PROVIDERS: ADMIT Internal Medicine; ATTEND Internal Medicine
DX: K70.30 Alcoholic cirrhosis of liver without ascites (principal); E43 Unspecified severe protein-calorie malnutrition; D68.4 Acquired coagulation factor deficiency; E86.0 Dehydration; E11.65 Type 2 diabetes mellitus with hyperglycemia; K42.9 Umbilical hernia without obstruction or gangrene; F10.20 Alcohol dependence, uncomplicated; F41.9 Anxiety disorder, unspecified; R79.89 Other specified abnormal findings of blood chemistry; Z91.148 Patient's other noncompliance with medication regimen for other reason; Z68.27 Body mass index [BMI] 27.0-27.9, adult
CPT/HCPCS: 36415; 70450; 71045; 80048; 80053; 80307; 80320; 81001; 82010; 82140; 82962; 83036; 83605; 83735; 83880; 84484; 85025; 85610; 85730; 87040; 93005; 96365; G0378; J1815; J2405; J3490; P9047

== ENCOUNTER 2023-07-14 11:53 | Inpatient (IN) | payer MEDICAID ==
[~2023-07-14] VITALS: Ht 167.6 cm; Wt 81.0 kg
[2023-07-14 13:06] LABS: Basophils # (auto) 0 10 ^3/uL (0-0.2); Basophils % (auto) 0.2 % (0.0-2.0); Eosinophils # (auto) 0 10 ^3/uL (0-0.8); Eosinophils % (auto) 0.1 % (0.0-7.0); Hematocrit 27.4 % (41.0-53.0); Hemoglobin 8.6 g/dL (13.5-17.5); Lymphocytes # (auto) 1.4 10 ^3/uL (0.4-5.4); Lymphocytes % (auto) 15.3 % (10.0-50.0); Mean Corpuscular Hemoglobin 24.8 pg (28.0-32.0); Mean Corpuscular Hgb Conc. 31.4 g/dL (32.0-36.0); Mean Corpuscular Volume 78.9 fL (80.0-100.0); Monocytes # (auto) 0.7 10 ^3/uL (0-1.3); Monocytes % (auto) 7.2 % (0.0-12.0); Neutrophils # (auto) 7.3 10 ^3/uL (1.6-8.6); Neutrophils % (auto) 77.2 % (37.0-80.0); Nucleated Red Blood Cells % 0.1 %; Red Blood Cells 3.47 10^6/uL (4.5-5.90); Red Cell Distribution Width 17.3 % (11.8-14.3); White Blood Cell 9.4 10^3/uL (4.4-10.8)
[2023-07-14 13:17] LABS: Alanine Aminotransferase 33 U/L (7-40); Albumin 2.9 g/dL (3.2-4.8); Alkaline Phosphatase 95 U/L (46-116); Anion Gap 10 (5-15); Aspartate Aminotransferase 23 U/L (13-40); BUN/Creatinine Ratio 47.3 (10.0-20.0); Blood Urea Nitrogen 62 mg/dL (9-23); Calcium 8.8 mg/dL (8.5-10.1); Carbon Dioxide 29 mmol/L (20-30); Chloride 89 mmol/L (98-107); Potassium 4.8 mmol/L (3.5-5.1); Sodium 128 mmol/L (136-145)
[2023-07-14 13:18] LABS: Bilirubin, Total 2.2 mg/dL (0.2-1.0); Total Protein 5.7 g/dL (5.7-8.2)
[2023-07-14 13:35] LABS: Glucose 646 mg/dL (74-106)
[2023-07-14] MEDS ORDERED: IOHEXOL 300 MG/ML 100ML BOTTLE IJ ONE ×2 (13:39→16:29)
[2023-07-14] MEDS ORDERED: InsuLIN REG 1unit/0.01ml Soln (100units/ml) IV ONE (13:45)
[2023-07-14] MEDS ORDERED: SODIUM CHLORIDE 0.9% 1,000 ML IV ONE ×2 (13:45→14:45)
[2023-07-14 14:09] LABS: Lactic Acid w/Reflex 6.2 mmol/L (0.4-2.0)
[2023-07-14 14:30] LABS: CRP High Sensitivity 0.07 mg/dL (<1.0)
[2023-07-14 14:50] VITALS: PULSE 93; RESP 16; O2SAT 95
[2023-07-14] MEDS ORDERED: DOCUSATE SOD 100 MG CAP PO PRN (16:15)
[2023-07-14] MEDS ORDERED: DEXTROSE (50%) 50ML SYRG IV PRN ×3 (16:15→23:15)
[2023-07-14] MEDS ORDERED: ACETAMINOPHEN 325 MG TAB PO PRN (16:15)
[2023-07-14] MEDS ORDERED: ACCU-CHEK COMFORT CURVE STRIP VI SCH ×2 (17:00→22:00)
[2023-07-14] MEDS ORDERED: InsuLIN REG 1unit/0.01ml Soln (100units/ml) SC SCH ×3 (17:00→22:00)
[2023-07-14] MEDS: SODIUM CHLORIDE 0.9% 1,000 ML IV SCH ×2 (17:01→22:58)
[2023-07-14] MEDS ORDERED: FURO40TA4 PO (18:32)
[2023-07-14] MEDS ORDERED: ALBUMIN 25% 100 ML IV ONE (18:45)
[2023-07-14 19:10] LABS: Urine Bacteria FEW /hpf (None Seen); Urine Blood Negative /uL (Negative); Urine Clarity Clear (Clear); Urine Color Yellow (Yellow); Urine Protein, UAD Negative (Negative); Urine Specific Gravity 1.025 (1.001-1.035); Urine Urobilinogen Normal (Negative); Urine WBC <1 /hpf (0 - 3); Urine pH 5.5 (5.0-8.0)
[2023-07-14 19:56] LABS: INR 1.32 (0.9-1.15); Partial Thromboplastin Time 23.9 SEC (24.5-34.5); Prothrombin Time 13.6 sec (9.3-11.8)
[2023-07-14 20:58] VITALS: PULSE 110; RESP 19; O2SAT 93
[2023-07-14] MEDS: metroNIDAZOLE 500MG/100ML 100 ML IV SCH (22:41)
[2023-07-14] MEDS: PANTOPRAZOLE 40 MG/10 ML VIAL INJ IV SCH (22:42)
[2023-07-14 23:13] LABS: Basophils # (auto) 0 10 ^3/uL (0-0.2); Eosinophils # (auto) 0.1 10 ^3/uL (0-0.8); Eosinophils % (auto) 0.5 % (0.0-7.0); Lymphocytes # (auto) 2.4 10 ^3/uL (0.4-5.4); Monocytes # (auto) 1.2 10 ^3/uL (0-1.3); Neutrophils # (auto) 6.7 10 ^3/uL (1.6-8.6); White Blood Cell 10.4 10^3/uL (4.4-10.8)
[2023-07-14 23:15] LABS: Basophils % (auto) 0.3 % (0.0-2.0); Hematocrit 18.9 % (41.0-53.0); Mean Corpuscular Hemoglobin 24.9 pg (28.0-32.0); Mean Corpuscular Hgb Conc. 32.5 g/dL (32.0-36.0); Mean Corpuscular Volume 76.7 fL (80.0-100.0); Monocytes % (auto) 11.2 % (0.0-12.0); Red Blood Cells 2.46 10^6/uL (4.5-5.90)
[2023-07-14 23:23] LABS: Hemoglobin 6.1 g/dL (13.5-17.5)
[2023-07-15] VITALS (13 sets, daily range): BP systolic 90–109; BP diastolic 48–62; PULSE 68–102; RESP 13–18; TEMP 97.8–98.7; O2SAT 100
[2023-07-15] MEDS: PIPERACILLIN-TAZOB 3.375GM 100 ML IV SCH ×4 (00:09→23:11)
[2023-07-15] MEDS: InsuLIN REG 1unit/0.01ml Soln (100units/ml) SC SCH ×3 (04:00→18:32)
[2023-07-15] MEDS: ACCU-CHEK COMFORT CURVE STRIP VI SCH ×4 (04:15→23:11)
[2023-07-15] MEDS: SODIUM CHLORIDE 0.9% 1,000 ML IV SCH ×3 (05:42→18:55)
[2023-07-15] MEDS: metroNIDAZOLE 500MG/100ML 100 ML IV SCH ×2 (05:55→13:44)
[2023-07-15] MEDS ORDERED: InsuLIN REG 1unit/0.01ml Soln (100units/ml) SC SCH (07:00)
[2023-07-15 08:17] LABS: Basophils # (auto) 0 10 ^3/uL (0-0.2); Basophils % (auto) 0.1 % (0.0-2.0); Eosinophils # (auto) 0.1 10 ^3/uL (0-0.8); Eosinophils % (auto) 1.9 % (0.0-7.0); Hemoglobin 8.5 g/dL (13.5-17.5); Lymphocytes # (auto) 1.8 10 ^3/uL (0.4-5.4); Lymphocytes % (auto) 23.6 % (10.0-50.0); Mean Corpuscular Hemoglobin 26.2 pg (28.0-32.0); Mean Corpuscular Hgb Conc. 32.6 g/dL (32.0-36.0); Mean Corpuscular Volume 80.3 fL (80.0-100.0); Monocytes # (auto) 0.8 10 ^3/uL (0-1.3); Monocytes % (auto) 9.9 % (0.0-12.0); Neutrophils # (auto) 4.9 10 ^3/uL (1.6-8.6); Neutrophils % (auto) 64.5 % (37.0-80.0); Nucleated Red Blood Cells % 0.4 %; Red Blood Cells 3.23 10^6/uL (4.5-5.90); Red Cell Distribution Width 17.5 % (11.8-14.3); White Blood Cell 7.6 10^3/uL (4.4-10.8)
[2023-07-15 08:56] LABS: Alanine Aminotransferase 25 U/L (7-40); Alkaline Phosphatase 75 U/L (46-116); Anion Gap 5 (5-15); Aspartate Aminotransferase 25 U/L (13-40); BUN/Creatinine Ratio 36.8 (10.0-20.0); Calcium 8.2 mg/dL (8.5-10.1); Carbon Dioxide 31 mmol/L (20-30); Chloride 101 mmol/L (98-107); Potassium 3.3 mmol/L (3.5-5.1); Sodium 137 mmol/L (136-145)
[2023-07-15 08:57] LABS: Albumin 2.8 g/dL (3.2-4.8); Bilirubin, Total 2.8 mg/dL (0.2-1.0); Blood Urea Nitrogen 32 mg/dL (9-23); Glucose 258 mg/dL (74-106); Total Protein 5.1 g/dL (5.7-8.2)
[2023-07-15] MEDS ORDERED: POTASSIUM CHL 20 Meq TABLET PO ONE (09:30)
[2023-07-15] MEDS ORDERED: INSULIN LANTUS (GLARGINE) 1 /0.01ml (100units/ml) SC ONE (11:45)
[2023-07-15] MEDS ORDERED: DEXTROSE (50%) 50ML SYRG IV PRN (11:45)
[2023-07-15] MEDS: PANTOPRAZOLE 40 MG/10 ML VIAL INJ IV SCH ×2 (13:44→23:11)
[2023-07-16] VITALS (7 sets, daily range): BP systolic 89–136; BP diastolic 49–66; PULSE 68–90; RESP 16–20; TEMP 97.9–99.1; O2SAT 90–100
[2023-07-16] MEDS: InsuLIN REG 1unit/0.01ml Soln (100units/ml) SC SCH ×5 (00:33→23:39)
[2023-07-16 06:10] LABS: Basophils # (auto) 0 10 ^3/uL (0-0.2); Eosinophils # (auto) 0.2 10 ^3/uL (0-0.8); Monocytes # (auto) 0.6 10 ^3/uL (0-1.3); Red Blood Cells 2.98 10^6/uL (4.5-5.90); White Blood Cell 5.2 10^3/uL (4.4-10.8)
[2023-07-16 06:12] LABS: Basophils % (auto) 0.2 % (0.0-2.0); Eosinophils % (auto) 4.1 % (0.0-7.0); Hematocrit 24.1 % (41.0-53.0); Lymphocytes # (auto) 1.6 10 ^3/uL (0.4-5.4); Lymphocytes % (auto) 31.2 % (10.0-50.0); Mean Corpuscular Hgb Conc. 33.4 g/dL (32.0-36.0); Mean Corpuscular Volume 80.8 fL (80.0-100.0); Neutrophils # (auto) 2.8 10 ^3/uL (1.6-8.6); Neutrophils % (auto) 53.5 % (37.0-80.0); Nucleated Red Blood Cells % 0.4 %; Red Cell Distribution Width 17.7 % (11.8-14.3)
[2023-07-16 06:24] LABS: Alanine Aminotransferase 29 U/L (7-40); Alkaline Phosphatase 83 U/L (46-116); Anion Gap 5 (5-15); BUN/Creatinine Ratio 18.7 (10.0-20.0); Blood Urea Nitrogen 14 mg/dL (9-23); Calcium 8.1 mg/dL (8.7-10.4); Carbon Dioxide 27 mmol/L (20-30); Chloride 105 mmol/L (98-107); Glucose 225 mg/dL (74-106); Magnesium 1.8 mg/dL (1.6-2.6); Potassium 3.7 mmol/L (3.5-5.1); Sodium 137 mmol/L (136-145)
[2023-07-16 06:26] LABS: Albumin 2.6 g/dL (3.2-4.8); Aspartate Aminotransferase 35 U/L (13-40); Bilirubin, Total 1.5 mg/dL (0.2-1.0); Total Protein 4.7 g/dL (5.7-8.2)
[2023-07-16] MEDS: SODIUM CHLORIDE 0.9% 1,000 ML IV SCH ×4 (06:40→21:43)
[2023-07-16] MEDS: PIPERACILLIN-TAZOB 3.375GM 100 ML IV SCH ×3 (06:40→21:44)
[2023-07-16] MEDS: ACCU-CHEK COMFORT CURVE STRIP VI SCH ×4 (06:41→21:44)
[2023-07-16 07:19] LABS: Platelet Estimate Decreased
[2023-07-16 07:20] LABS: Anisocytosis Moderate
[2023-07-16] MEDS ORDERED: INSULIN LANTUS (GLARGINE) 1 /0.01ml (100units/ml) SC SCH (10:00)
[2023-07-16] MEDS: PANTOPRAZOLE 40 MG/10 ML VIAL INJ IV SCH ×2 (10:25→21:44)
[2023-07-16] MEDS ORDERED: INSULIN LANTUS (GLARGINE) 1 /0.01ml (100units/ml) SC ONE (13:00)
[2023-07-17 04:53] VITALS: BP 96/56; PULSE 75; RESP 14; TEMP 98.6; O2SAT 98
[2023-07-17] MEDS: SODIUM CHLORIDE 0.9% 1,000 ML IV SCH ×3 (05:40→18:35)
[2023-07-17] MEDS: PIPERACILLIN-TAZOB 3.375GM 100 ML IV SCH ×3 (05:40→21:56)
[2023-07-17 06:39] LABS: Basophils # (auto) 0 10 ^3/uL (0-0.2); Eosinophils # (auto) 0.3 10 ^3/uL (0-0.8); Eosinophils % (auto) 5.9 % (0.0-7.0); Hemoglobin 7.6 g/dL (13.5-17.5); Monocytes # (auto) 0.5 10 ^3/uL (0-1.3)
[2023-07-17 06:41] LABS: Basophils % (auto) 0.4 % (0.0-2.0); Chloride 105 mmol/L (98-107); Hematocrit 23.5 % (41.0-53.0); Lymphocytes # (auto) 1.5 10 ^3/uL (0.4-5.4); Lymphocytes % (auto) 31.3 % (10.0-50.0); Mean Corpuscular Hemoglobin 26.5 pg (28.0-32.0); Mean Corpuscular Hgb Conc. 32.5 g/dL (32.0-36.0); Mean Corpuscular Volume 81.5 fL (80.0-100.0); Monocytes % (auto) 10.4 % (0.0-12.0); Neutrophils # (auto) 2.5 10 ^3/uL (1.6-8.6); Nucleated Red Blood Cells % 0.3 %; Potassium 3.5 mmol/L (3.5-5.1); Red Blood Cells 2.89 10^6/uL (4.5-5.90); Red Cell Distribution Width 17.9 % (11.8-14.3); Sodium 136 mmol/L (136-145); White Blood Cell 4.9 10^3/uL (4.4-10.8)
[2023-07-17 06:42] LABS: Anion Gap 4 (5-15); Calcium 7.9 mg/dL (8.7-10.4); Carbon Dioxide 27 mmol/L (20-30)
[2023-07-17 06:47] LABS: Blood Urea Nitrogen 8 mg/dL (9-23)
[2023-07-17 06:48] LABS: Magnesium 1.5 mg/dL (1.6-2.6)
[2023-07-17] MEDS: InsuLIN REG 1unit/0.01ml Soln (100units/ml) SC SCH ×4 (06:48→21:46)
[2023-07-17] MEDS: ACCU-CHEK COMFORT CURVE STRIP VI SCH ×4 (06:49→21:48)
[2023-07-17 06:52] LABS: BUN/Creatinine Ratio 9.5 (10.0-20.0); Glucose 200 mg/dL (74-106)
[2023-07-17 09:00] VITALS: BP_SYST 102; BP_SYST 104; BP_SYST 133; BP_DIAS 58; BP_DIAS 6; BP_DIAS 70; PULSE 65; PULSE 75; PULSE 94; RESP 17; RESP 18; TEMP 98.3; TEMP 98.4; O2SAT 96; O2SAT 98
[2023-07-17] MEDS ORDERED: INSULIN LANTUS (GLARGINE) 1 /0.01ml (100units/ml) SC SCH (10:00)
[2023-07-17] MEDS: PANTOPRAZOLE 40 MG/10 ML VIAL INJ IV SCH ×2 (10:03→23:32)
[2023-07-17 17:17] VITALS: BP 105/65; PULSE 85; RESP 19; TEMP 98.1; O2SAT 100
[2023-07-17 20:00] VITALS: PULSE 90; RESP 20; TEMP 36.7
[2023-07-17 22:00] VITALS: BP 113/66; PULSE 74; RESP 16; TEMP 98.4; O2SAT 100
[2023-07-18] MEDS: SODIUM CHLORIDE 0.9% 1,000 ML IV SCH ×4 (00:15→18:50)
[2023-07-18 04:28] VITALS: BP 101/64; PULSE 84; RESP 16; TEMP 98.3; O2SAT 99
[2023-07-18] MEDS: InsuLIN REG 1unit/0.01ml Soln (100units/ml) SC SCH ×4 (06:44→22:15)
[2023-07-18] MEDS: PIPERACILLIN-TAZOB 3.375GM 100 ML IV SCH ×3 (06:47→21:49)
[2023-07-18] MEDS: ACCU-CHEK COMFORT CURVE STRIP VI SCH ×4 (06:47→21:56)
[2023-07-18 07:34] LABS: Basophils # (auto) 0 10 ^3/uL (0-0.2); Eosinophils # (auto) 0.2 10 ^3/uL (0-0.8); Hemoglobin 8.4 g/dL (13.5-17.5); Lymphocytes # (auto) 1.3 10 ^3/uL (0.4-5.4); Monocytes # (auto) 0.5 10 ^3/uL (0-1.3); Nucleated Red Blood Cells % 0.2 %; Red Cell Distribution Width 18.5 % (11.8-14.3)
[2023-07-18 07:38] LABS: Basophils % (auto) 0.3 % (0.0-2.0); Eosinophils % (auto) 4.9 % (0.0-7.0); Lymphocytes % (auto) 26.6 % (10.0-50.0); Mean Corpuscular Hemoglobin 26.6 pg (28.0-32.0); Mean Corpuscular Hgb Conc. 32.3 g/dL (32.0-36.0); Mean Corpuscular Volume 82.4 fL (80.0-100.0); Monocytes % (auto) 9.9 % (0.0-12.0); Neutrophils # (auto) 2.8 10 ^3/uL (1.6-8.6); Neutrophils % (auto) 58.3 % (37.0-80.0); Red Blood Cells 3.15 10^6/uL (4.5-5.90); White Blood Cell 4.8 10^3/uL (4.4-10.8)
[2023-07-18 07:52] LABS: Alanine Aminotransferase 38 U/L (7-40); Albumin 2.6 g/dL (3.2-4.8); Alkaline Phosphatase 87 U/L (46-116); Anion Gap 4 (5-15); Aspartate Aminotransferase 39 U/L (13-40); BUN/Creatinine Ratio 10.8 (10.0-20.0); Blood Urea Nitrogen 8 mg/dL (9-23); Calcium 8.1 mg/dL (8.5-10.1); Carbon Dioxide 28 mmol/L (20-30); Chloride 105 mmol/L (98-107); Glucose 220 mg/dL (74-106); Potassium 3.7 mmol/L (3.5-5.1); Sodium 137 mmol/L (136-145)
[2023-07-18 07:53] LABS: Bilirubin, Total 1.4 mg/dL (0.2-1.0); Total Protein 4.9 g/dL (5.7-8.2)
[2023-07-18 08:56] VITALS: BP 99/63; PULSE 72; RESP 20; TEMP 98.9; O2SAT 96
[2023-07-18] MEDS: PANTOPRAZOLE 40 MG/10 ML VIAL INJ IV SCH ×2 (09:57→21:48)
[2023-07-18] MEDS ORDERED: INSULIN LANTUS (GLARGINE) 1 /0.01ml (100units/ml) SC SCH (10:00)
[2023-07-18 12:56] VITALS: BP 95/57; PULSE 68; RESP 20; TEMP 98.9; O2SAT 98
[2023-07-18] MEDS ORDERED: LIDOCAINE 2% (LOCAL ANESTH.) PF 5ml SDV ONE (13:29)
[2023-07-18] MEDS ORDERED: PROPOFOL 10 MG/ML 20 ML IV ONE (13:29)
[2023-07-18 13:49] VITALS: PULSE 97; RESP 17; O2SAT 100
[2023-07-18 17:13] VITALS: BP 96/58; PULSE 72; RESP 20; TEMP 99.5; O2SAT 98
[2023-07-18] MEDS: MAGNESIUM SULFATE 1GM/100ML 100 ML IV SCH ×2 (18:50→21:50)
[2023-07-18 22:00] VITALS: BP 100/62; PULSE 84; RESP 15; TEMP 98.8; O2SAT 96
[2023-07-19 04:20] LABS: Basophils # (auto) 0 10 ^3/uL (0-0.2); Basophils % (auto) 0.4 % (0.0-2.0); Eosinophils # (auto) 0.2 10 ^3/uL (0-0.8); Lymphocytes # (auto) 1.4 10 ^3/uL (0.4-5.4); Monocytes # (auto) 0.5 10 ^3/uL (0-1.3); Neutrophils # (auto) 2.4 10 ^3/uL (1.6-8.6); Nucleated Red Blood Cells % 0.2 %; White Blood Cell 4.5 10^3/uL (4.4-10.8)
[2023-07-19 04:22] LABS: Eosinophils % (auto) 5.4 % (0.0-7.0); Hematocrit 24.3 % (41.0-53.0); Lymphocytes % (auto) 30.3 % (10.0-50.0); Mean Corpuscular Hemoglobin 27.1 pg (28.0-32.0); Mean Corpuscular Hgb Conc. 32.8 g/dL (32.0-36.0); Mean Corpuscular Volume 82.7 fL (80.0-100.0); Monocytes % (auto) 10.8 % (0.0-12.0); Neutrophils % (auto) 53.1 % (37.0-80.0); Red Blood Cells 2.94 10^6/uL (4.5-5.90)
[2023-07-19 04:28] LABS: Alanine Aminotransferase 34 U/L (7-40); Albumin 2.4 g/dL (3.2-4.8); Alkaline Phosphatase 99 U/L (46-116); Anion Gap 6 (5-15); Aspartate Aminotransferase 44 U/L (13-40); Bilirubin, Total 1.1 mg/dL (0.2-1.0); Blood Urea Nitrogen 7 mg/dL (9-23); Calcium 8.1 mg/dL (8.7-10.4); Carbon Dioxide 26 mmol/L (20-30); Chloride 105 mmol/L (98-107); Glucose 240 mg/dL (74-106); Magnesium 1.8 mg/dL (1.6-2.6); Potassium 3.8 mmol/L (3.5-5.1); Sodium 137 mmol/L (136-145)
[2023-07-19 04:29] LABS: Total Protein 4.7 g/dL (5.7-8.2)
[2023-07-19 04:56] VITALS: BP 97/59; PULSE 69; RESP 15; TEMP 98.7; O2SAT 97
[2023-07-19] MEDS: PIPERACILLIN-TAZOB 3.375GM 100 ML IV SCH ×2 (06:51→13:31)
[2023-07-19] MEDS: SODIUM CHLORIDE 0.9% 1,000 ML IV SCH (06:52)
[2023-07-19] MEDS: ACCU-CHEK COMFORT CURVE STRIP VI SCH ×2 (06:52→11:28)
[2023-07-19] MEDS: InsuLIN REG 1unit/0.01ml Soln (100units/ml) SC SCH ×2 (06:52→11:32)
[2023-07-19 08:00] VITALS: BP 95/57; PULSE 67; RESP 18; TEMP 97.4; O2SAT 97
[2023-07-19 09:00] VITALS: BP 95/57; PULSE 67; RESP 18; TEMP 97.4; O2SAT 97
[2023-07-19] MEDS ORDERED: INSULIN LANTUS (GLARGINE) 1 /0.01ml (100units/ml) SC SCH (10:00)
[2023-07-19] MEDS ORDERED: PANTOPRAZOLE 40 MG TAB PO SCH (10:00)
[2023-07-19] MEDS ORDERED: PANT40T PO (10:15)
[2023-07-19] MEDS ORDERED: SUCR1TAB PO (10:15)
[2023-07-19] MEDS ORDERED: SUCRALFATE 1 GM TAB PO SCH (11:30)
[2023-07-19 13:00] VITALS: BP 109/71; PULSE 68; RESP 18; TEMP 98; O2SAT 100
[2023-07-19 14:09] VITALS: BP 95/57; PULSE 67; RESP 18; TEMP 97.4; O2SAT 97
== END 2023-07-19 15:13 | disposition home or self-care (01) | DRG 241 ==
LOC: ER 11:53 → OVERFLOW 16:13 → WEST WING 07-15 13:22
PROVIDERS: ADMIT Internal Medicine Pulmonary Disease; ATTEND Student in an Organized Health Care Education/Training Program
PROC: 30233N1 Transfusion of Nonautologous Red Blood Cells into Peripheral Vein, Percutaneous Approach (ICD-10-PCS; principal; 2023-07-15)
PROC: 0DJ08ZZ Inspection of Upper Intestinal Tract, Via Natural or Artificial Opening Endoscopic (ICD-10-PCS; 2023-07-18)
DX: K25.0 Acute gastric ulcer with hemorrhage (principal); N17.0 Acute kidney failure with tubular necrosis; I85.11 Secondary esophageal varices with bleeding; E11.10 Type 2 diabetes mellitus with ketoacidosis without coma; E44.1 Mild protein-calorie malnutrition; K70.31 Alcoholic cirrhosis of liver with ascites; I95.9 Hypotension, unspecified; D69.6 Thrombocytopenia, unspecified; K76.6 Portal hypertension; K31.89 Other diseases of stomach and duodenum; E86.0 Dehydration; K52.9 Noninfective gastroenteritis and colitis, unspecified; F41.9 Anxiety disorder, unspecified; R79.89 Other specified abnormal findings of blood chemistry; E87.6 Hypokalemia; E83.42 Hypomagnesemia; J44.9 Chronic obstructive pulmonary disease, unspecified; Z83.3 Family history of diabetes mellitus; Z68.29 Body mass index [BMI] 29.0-29.9, adult; D62 Acute posthemorrhagic anemia
CPT/HCPCS: 36415; 71045; 74177; 80048; 80053; 81001; 82010; 82140; 82270; 82962; 83036; 83605; 83690; 83735; 85025; 85048; 85610; 85730; 86141; 86850; 86900; 86901; 86920; 87040; 87045; 87493; 96361; 96374; 99291; C9113; G0378; J1815; J2001; J2543; J2704; J3490; P9047

== ENCOUNTER 2023-10-15 03:59 | Inpatient (IN) | payer MEDICAID ==
[~2023-10-15] VITALS: Ht 167.6 cm; Wt 81.8 kg
[2023-10-15] VITALS (19 sets, daily range): BP systolic 54–134; BP diastolic 14–115; PULSE 84–160; RESP 16–30; TEMP 92.7–97.7; O2SAT 90–100
[~2023-10-15 03:59] MED LIST changes: +FURO40TA4 PO; +PANT40T PO; +SUCR1TAB PO
[2023-10-15] MEDS ORDERED: dilTIAZem 25 MG/5 ML VIAL IV ONE (04:30)
[2023-10-15] MEDS ORDERED: ALBUMIN 5% 250 ML IV ONE ×4 (04:45)
[2023-10-15] MEDS ORDERED: ALBUMIN 5% 750 ML IV ONE (04:46)
[2023-10-15 04:57] LABS: Mean Corpuscular Hemoglobin 24.2 pg (28.0-32.0); Mean Corpuscular Hgb Conc. 25.7 g/dL (32.0-36.0)
[2023-10-15 04:58] LABS: Hematocrit 19.9 % (41.0-53.0); Mean Corpuscular Volume 94.3 fL (80.0-100.0); Red Blood Cells 2.11 10^6/uL (4.5-5.90); Red Cell Distribution Width 18.7 % (11.8-14.3); White Blood Cell 10.7 10^3/uL (4.4-10.8)
[2023-10-15 05:18] LABS: INR 1.99 (0.9-1.15); Partial Thromboplastin Time 30.5 SEC (24.5-34.5)
[2023-10-15 05:23] LABS: Hemoglobin 5.1 g/dL (13.5-17.5)
[2023-10-15] MEDS ORDERED: PHYTONADIONE (VIT K)10 MG/ML 1ML VIAL SUBCUT ONE (05:30)
[2023-10-15] MEDS ORDERED: OCTREOTIDE ACETATE 100 MCG in SODIUM CHL 0.9% 50 ML IV ONE (05:30)
[2023-10-15] MEDS ORDERED: PANTOPRAZOLE 40 MG/10 ML VIAL INJ IV ONE (05:30)
[2023-10-15] MEDS ORDERED: SODIUM BICARBONATE 8.4 % INJ 50ML VIAL IV ONE ×6 (05:30→19:30)
[2023-10-15 05:45] LABS: Albumin 2.5 g/dL (3.2-4.8); Alkaline Phosphatase 146 U/L (46-116); Anion Gap 42.00001 (5-15); BUN/Creatinine Ratio 19.6 (10.0-20.0); Bilirubin, Total 5.5 mg/dL (0.2-1.0); Blood Urea Nitrogen 37 mg/dL (9-23); Calcium 8.2 mg/dL (8.7-10.4); Chloride 79 mmol/L (98-107); Potassium 3.8 mmol/L (3.5-5.1); Sodium 131 mmol/L (136-145); Total Protein 5.1 g/dL (5.7-8.2)
[2023-10-15 05:55] LABS: Carbon Dioxide < 10 mmol/L (20-30); Glucose 486 mg/dL (74-106)
[2023-10-15 05:56] LABS: Alanine Aminotransferase 1102 U/L (7-40)
[2023-10-15 06:08] LABS: Basophils % (manual) 0 (0.0-2.0); Eosinophils % (manual) 0 (0-7); Metamyelocytes % 0; Myelocytes % 0; Promyelocytes % 0; Reactive Lymphocytes 0
[2023-10-15] MEDS ORDERED: SODIUM CHLORIDE 0.9% 500 ML IV ONE (06:15)
[2023-10-15] MEDS ORDERED: MORPHINE SULFATE INJ 2 MG/ml SYRG IV PRN ×2 (06:15→06:45)
[2023-10-15] MEDS ORDERED: HYDROcodone-ACET 5/325MG TAB PO PRN (06:15)
[2023-10-15] MEDS ORDERED: DEXTROSE (50%) 50ML SYRG IV PRN ×3 (06:15→18:45)
[2023-10-15] MEDS ORDERED: D5W/SOD CHLO 0.9% 1,000 ML IV SCH (06:15)
[2023-10-15] MEDS ORDERED: ONDANSETRON HCL 4 MG/2 ML VIAL IV PRN (06:15)
[2023-10-15] MEDS ORDERED: DOCUSATE SOD 100 MG CAP PO PRN (06:15)
[2023-10-15] MEDS ORDERED: ACETAMINOPHEN 325 MG TAB PO PRN (06:15)
[2023-10-15] MEDS ORDERED: InsuLIN REG 1unit/0.01ml Soln (100units/ml) IV ONE (06:15)
[2023-10-15] MEDS ORDERED: VASOPRESSIN 20 UNIT/ML ONE ×3 (06:24→06:42)
[2023-10-15 06:26] LABS: Urine Bacteria NONE SEEN /hpf (None Seen); Urine Blood TRACE /uL (Negative); Urine Clarity HAZY (Clear); Urine Color Yellow (Yellow); Urine Hyaline Cast MOD /lpf (0 - 2); Urine Protein, UAD TRACE (Negative); Urine Specific Gravity 1.016 (1.001-1.035); Urine Urobilinogen Normal (Negative); Urine WBC 11 /hpf (0 - 3)
[2023-10-15] MEDS ORDERED: SODIUM CHLORIDE 0.9% IV ONE ×8 (06:30→08:00)
[2023-10-15] MEDS ORDERED: ALBUMIN 25% IV ONE ×8 (06:30→08:00)
[2023-10-15 06:41] LABS: Aspartate Aminotransferase 3218 U/L (13-40)
[2023-10-15] MEDS ORDERED: NITROGLYCERIN 0.4 MG SL TAB SL PRN (06:45)
[2023-10-15] MEDS: VASOPRESSIN 40 UNITS in D5W 5% 198 ML IV SCH ×4 (06:50→16:38)
[2023-10-15] MEDS: ACCU-CHEK COMFORT CURVE STRIP VI SCH ×7 (07:00→13:00)
[2023-10-15] MEDS ORDERED: InsuLIN REG 1unit/0.01ml Soln (100units/ml) SC SCH ×2 (08:00→16:00)
[2023-10-15] MEDS ORDERED: ACCU-CHEK COMFORT CURVE STRIP VI SCH ×3 (08:00→19:30)
[2023-10-15] MEDS: OCTREOTIDE ACETATE 500 MCG in SODIUM CHL 0.9% 99 ML IV SCH ×2 (08:15→15:55)
[2023-10-15 08:44] LABS: Band Neutrophils % (manual) 7; Blast Cells 2; Lymphocytes % (manual) 13 (10.0-50.0); Monocytes % (manual) 7 (0-12); Platelet Estimate Decreased
[2023-10-15 08:45] LABS: Hypochromia Slight
[2023-10-15] MEDS ORDERED: SODIUM BICARBONATE 50ML VIAL 150 ML in D5W 5% 1,000 ML IV SCH (09:30)
[2023-10-15] MEDS ORDERED: NOREPINEPHRINE 8 MG/250ML KIT 250 ML IV ONE (09:54)
[2023-10-15] MEDS ORDERED: FAMOTIDINE (10MG/ML) 2ML VL IV SCH (10:00)
[2023-10-15] MEDS ORDERED: NOREPINEPHRINE 8 MG/250ML KIT 250 ML IV SCH (10:00)
[2023-10-15] MEDS ORDERED: THIAMINE 100mg/ml INJ (200mg/2ml VIAL) IV SCH (10:30)
[2023-10-15] MEDS ORDERED: FOLIC ACID 1 MG in D5W 5% 50 ML INJ SCH (10:30)
[2023-10-15] MEDS ORDERED: EPINEPHrine HCL 250 ML IV ONE (11:09)
[2023-10-15] MEDS ORDERED: PHENYLEPHRINE IV 250 ML IV ONE (11:09)
[2023-10-15] MEDS ORDERED: PHENYLEPHRINE IV 250 ML IV SCH (11:15)
[2023-10-15] MEDS ORDERED: EPINEPHrine HCL 250 ML IV SCH (11:15)
[2023-10-15] MEDS ORDERED: INSULIN LANTUS (GLARGINE) 1 /0.01ml (100units/ml) SC ONE (12:39)
[2023-10-15 13:05] LABS: Basophils # (auto) 0 10 ^3/uL (0-0.2); Eosinophils # (auto) 0 10 ^3/uL (0-0.8); Lymphocytes # (auto) 2.1 10 ^3/uL (0.4-5.4); Monocytes # (auto) 0.9 10 ^3/uL (0-1.3)
[2023-10-15 13:07] LABS: Basophils % (auto) 0.2 % (0.0-2.0); Hematocrit 22.9 % (41.0-53.0); Lymphocytes % (auto) 12.1 % (10.0-50.0); Mean Corpuscular Hemoglobin 28.5 pg (28.0-32.0); Mean Corpuscular Hgb Conc. 28.9 g/dL (32.0-36.0); Mean Corpuscular Volume 98.6 fL (80.0-100.0); Monocytes % (auto) 4.9 % (0.0-12.0); Neutrophils # (auto) 14.5 10 ^3/uL (1.6-8.6); Neutrophils % (auto) 82.8 % (37.0-80.0); Nucleated Red Blood Cells % 0.1 %; Red Blood Cells 2.32 10^6/uL (4.5-5.90); Red Cell Distribution Width 18.5 % (11.8-14.3); White Blood Cell 17.5 10^3/uL (4.4-10.8)
[2023-10-15 13:20] LABS: Hemoglobin 6.6 g/dL (13.5-17.5)
[2023-10-15 13:27] LABS: Base Excess -22.4 mmol/L (-2.0-2.0)
[2023-10-15 13:27] LABS: Albumin 2.4 g/dL (3.2-4.8); Alkaline Phosphatase 128 U/L (46-116); Anion Gap 40.00001 (5-15); BUN/Creatinine Ratio 17.8 (10.0-20.0); Blood Urea Nitrogen 38 mg/dL (9-23); Calcium 6.9 mg/dL (8.7-10.4); Chloride 82 mmol/L (98-107); Potassium 4.5 mmol/L (3.5-5.1); Sodium 132 mmol/L (136-145)
[2023-10-15 13:28] LABS: Bilirubin, Total 4.9 mg/dL (0.2-1.0); Total Protein 4.3 g/dL (5.7-8.2)
[2023-10-15 13:49] LABS: Alanine Aminotransferase 1892 U/L (7-40); Aspartate Aminotransferase > 6000 U/L (13-40)
[2023-10-15 13:51] LABS: Carbon Dioxide < 10 mmol/L (20-30); Glucose 482 mg/dL (74-106)
[2023-10-15] MEDS ORDERED: SODIUM BICARBONATE 8.4% INJ 50ML SYRINGE ONE (16:26)
[2023-10-15 17:40] LABS: Basophils % (auto) 0.3 % (0.0-2.0); Eosinophils # (auto) 0 10 ^3/uL (0-0.8); Hematocrit 23.8 % (41.0-53.0); Mean Corpuscular Hemoglobin 28.2 pg (28.0-32.0); Mean Corpuscular Hgb Conc. 29.4 g/dL (32.0-36.0); Neutrophils % (auto) 87.7 % (37.0-80.0); Red Blood Cells 2.48 10^6/uL (4.5-5.90)
[2023-10-15 17:42] LABS: Basophils # (auto) 0.1 10 ^3/uL (0-0.2); Lymphocytes # (auto) 1.2 10 ^3/uL (0.4-5.4); Lymphocytes % (auto) 8.1 % (10.0-50.0); Mean Corpuscular Volume 95.7 fL (80.0-100.0); Monocytes # (auto) 0.6 10 ^3/uL (0-1.3); Monocytes % (auto) 3.9 % (0.0-12.0); Neutrophils # (auto) 13.4 10 ^3/uL (1.6-8.6); Nucleated Red Blood Cells % 0.2 %; Red Cell Distribution Width 16.9 % (11.8-14.3); White Blood Cell 15.3 10^3/uL (4.4-10.8)
[2023-10-15 17:44] LABS: Chloride 80 mmol/L (98-107); Potassium 5.4 mmol/L (3.5-5.1); Sodium 132 mmol/L (136-145)
[2023-10-15 17:45] LABS: Anion Gap 42.00001 (5-15)
[2023-10-15 17:46] LABS: Calcium 6.6 mg/dL (8.5-10.1)
[2023-10-15 17:51] LABS: BUN/Creatinine Ratio 17.9 (10.0-20.0); Blood Urea Nitrogen 41 mg/dL (9-23)
[2023-10-15] MEDS ORDERED: LACTULOSE 20Gm/30ML SOLN PO SCH (18:00)
[2023-10-15 18:27] LABS: Carbon Dioxide < 10 mmol/L (20-30); Glucose 546 mg/dL (74-106)
[2023-10-15 18:27] LABS: Lactic Acid w/Reflex 34.9 mmol/L (0.4-2.0)
[2023-10-15] MEDS ORDERED: CALCIUM GLUC 1,000mg/50ml-NS 50 ML IV ONE (18:45)
[2023-10-15] MEDS ORDERED: INSULIN DRIP 100 UNIT/100ML 100 ML IV SCH (18:45)
[2023-10-15 19:13] LABS: Base Excess -19.7 mmol/L (-2.0-2.0)
[2023-10-15 19:26] LABS: Magnesium 2.2 mg/dL (1.6-2.6)
[2023-10-15 19:27] LABS: Phosphorus 13.9 mg/dL (2.4-5.1)
[2023-10-15 19:35] LABS: Amphetamine Screen, Urine Neg (NEGATIVE); Barbiturate Scree,Urine Neg (NEGATIVE); Benzodiazephine Screen, Urine Neg (NEGATIVE); Cocaine Screen, Urine Neg (NEGATIVE)
[2023-10-15 19:36] LABS: Cannabinoid Screen, Urine Neg (NEGATIVE); Opiate Scree,Urine Neg (NEGATIVE); Phencyclidine Screen, Urine Neg (NEGATIVE)
[2023-10-15] MEDS ORDERED: VANCOMYCIN PER PHARMACY 0 MG IV SCH (20:00)
[2023-10-15] MEDS ORDERED: EPINEPHrine HCL 1 MG/10 ML SYRG ONE (20:21)
[2023-10-15] MEDS ORDERED: SODIUM BICARBONATE 8.4% INJ 50ML SYRINGE IV ONE (20:27)
[2023-10-15] MEDS ORDERED: EPINEPHrine HCL 1 MG/10 ML SYRG IV ONE (20:27)
[2023-10-15] MEDS ORDERED: VANCOMYCIN 1GM/200ML 200 ML IV ONE (20:45)
[2023-10-15] MEDS ORDERED: CEFEPIME 2GM/50ML NS 50 ML IV SCH (22:00)
[2023-10-16 07:07] LABS: Complement C3 26 mg/dL (82-167)
[2023-10-16] MEDS ORDERED: INSULIN LANTUS (GLARGINE) 1 /0.01ml (100units/ml) SC SCH (10:00)
[2023-10-18 08:57] LABS: Hepatitis B Surface Antigen Negative (Negative)
[2023-10-18 09:18] LABS: Hepatitis A Ab IgM Negative; Hepatitis B Core IgM Negative
[2023-10-18 09:19] LABS: Hepatitis C Antibody Negative (Negative)
[2023-10-18 19:06] LABS: Antimyeloperoxidase (MPO) Ab <0.2 units (0.0-0.9); Antiproteinase 3 (PR-3) Ab <0.2 units (0.0-0.9)
== END 2023-10-15 20:28 | DRG 253 ==
LOC: ER 03:59 → TELE 06:31
PROVIDERS: ADMIT Nurse Practitioner Family; ATTEND Family Medicine
PROC: 30233K1 Transfusion of Nonautologous Frozen Plasma into Peripheral Vein, Percutaneous Approach (ICD-10-PCS; principal; 2023-10-15)
PROC: 30233N1 Transfusion of Nonautologous Red Blood Cells into Peripheral Vein, Percutaneous Approach (ICD-10-PCS; 2023-10-15)
DX: K92.2 Gastrointestinal hemorrhage, unspecified (principal); J96.01 Acute respiratory failure with hypoxia; E11.10 Type 2 diabetes mellitus with ketoacidosis without coma; N17.9 Acute kidney failure, unspecified; R57.1 Hypovolemic shock; D69.6 Thrombocytopenia, unspecified; R57.0 Cardiogenic shock; I95.9 Hypotension, unspecified; E88.09 Other disorders of plasma-protein metabolism, not elsewhere classified; D62 Acute posthemorrhagic anemia; E87.8 Other disorders of electrolyte and fluid balance, not elsewhere classified; J44.9 Chronic obstructive pulmonary disease, unspecified; K70.30 Alcoholic cirrhosis of liver without ascites; D64.9 Anemia, unspecified; R74.01 Elevation of levels of liver transaminase levels; F10.10 Alcohol abuse, uncomplicated; F41.9 Anxiety disorder, unspecified; Y90.9 Presence of alcohol in blood, level not specified; I10 Essential (primary) hypertension; K52.9 Noninfective gastroenteritis and colitis, unspecified; R00.0 Tachycardia, unspecified; R74.8 Abnormal levels of other serum enzymes; Z79.899 Other long term (current) drug therapy; Z79.4 Long term (current) use of insulin; Z83.3 Family history of diabetes mellitus
CPT/HCPCS: 31500; 36415; 36600; 76705; 80048; 80053; 80074; 80307; 81001; 82010; 82140; 82805; 82962; 83010; 83036; 83516; 83520; 83605; 83690; 83735; 84100; 84550; 85007; 85025; 85027; 85048; 85610; 85730; 86160; 86225; 86235; 86256; 86850; 86900; 86901; 86920; 92950; 96365; 96366; 99291; C9113; G0378; J0171; J1815; J3430; J3490; J7060